=== PATIENT | male | born 1955 | race Caucasian/White ===

== ENCOUNTER 2022-07-23 09:33 | Inpatient (IN) ==
[2022-07-23] MEDS ORDERED: fentaNYL citrate 100 MCG/2 ML VIAL IV STA (10:07)
[2022-07-23] MEDS ORDERED: ONDANSETRON INJ 2 MG/ML 2 ML VIAL IV STA (10:07)
--- NOTE | 2022-07-23 10:12 | Emergency Department Note ---
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 Pain improved with nitro but developed lightheadedness and headache given some IV narcotics here with improvement in pain. Initial labs and chest x-ray unrema rkable though he does have an elevated D-dimer. His initial EKG is without ischemia. A CTA of the chest was obtained which reveals no acute findings. Further discussion with the patient he does admit he may have had a stent versus angioplasty of his coronaries several years ago. He does have multiple family members with cardiac disease. I suspect he does have some underlying other health problems though only takes an aspirin 81 mg daily sometimes to the fact that his felt he might be needing to take it. With this uncertain history, no follow-up ability and findings I feel cardiac rule out would be indicated. He is comfortable with this plan. Stable throughout. Patient received aspirin 324 mg p.o. via EMS Triage/Nursing Notes reviewed by Me Additional history obtained from EMS Differentials:Cardiac ischemia, aortic dissection, pulmonary embolism, pneumothorax, pneumonia, pericarditis, myocarditis, esophageal rupture, GERD, cholecystitis, pancreatitis, musculoskeletal, as well as other pathologies. Vital Signs: reviewed and remarkable for no significant abnormalities Interventions: Dilaudid IV, fentanyl IV, Zofran IV Labs:Reviewed and remarkable for no significant abnormalities Imaging:Chest x-ray no acute findings as per radiology. CTA of the chest as per radiology no acute findings EKG:As per my interpretation. Indication chest pain. Normal sinus rhythm at 62 bpm with a QTC of 381. There is no ectopy nor ischemia. There is poor baseline in leads II and III. No previous EKG for comparison Consults: Irvin Wisdomist Plan: Disposition:Hospitalization. Condition: Good History of Present Illness:66-year-old gentleman arrives for evaluation of chest pain. Patient notes that he history of previous small blockage around his heart that need to be cleaned out but he does not know if he has a stent. He also has a device in his left under chest but he does not know what that is either. He states he was admitted to the hospital 2 years ago for COVID for about 2 months. He denies any history of hypertension, dyslipidemia, smoking, diabetes. He does have a familial history of cardiac disease with both parents dying of MIs. Patient takes aspirin 81 mg daily. 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 Radiation to the left arm. Is nauseous as well as having some heart palpitations lightheadedness and diaphoresis. EMS arrived and gave him several rounds of nitro with improvement in pain. He does note that the pain is still there and he has some continued nausea though. Exertion made worse and he is not sure he might have even passed out. Sitting down and lying down makes his symptoms better. Denies any falls, trauma, injuries. Denies any drug or alcohol use. Patient is a transport truck driver though denies any calf pain or history of DVT/PE. ROS: See above HPI for pertinent positives & negatives. A total of 10 systems reviewed and were otherwise negative. Past Medical History:CAD Past Surgical History:Cardiac stenting first ballooning unclear Family History:Parents of MIs Social History:van driver helper, does not smoke, , Home Medications:ASA 81 mg daily Allergies:No known drug allergies Vitals:Blood Pressure: 113/61, Pulse 61, RR 15, T 36.5C, O2 95% on RA Physical Exam: GENERAL: Patient is unkempt appearing and in moderate distress/anxious. EYES: No scleral icterus, unremarkable pupils. ENT: Mucous membranes moist, no nasal congestion. NECK: No masses appreciated, nomeningismus, trachea is midline. RESPIRATORY: No dyspnea. Clear to auscultation and equal bilaterally. No wheeze, no rhonchi. CARDIOVASCULAR: Regular rate and rhythm.No murmurs, rubs, gallops appreciated. GASTROINTESTINAL: Abdomen soft, non-tender, no peritonitis.Bowel sounds positive.No masses appreciated. BACK: No midline tenderness, no CVA tenderness EXTREMITIES: Normal motion all extremities, no cyanosis, no edema. NEUROLOGIC: Alert and oriented, no acute motor or sensory deficits, no focal weakness, cranial nerves grossly intact. SKIN: No rash, no jaundice, no diaphoresis. PSYCH: Appropriate GCS: 15 ED Course: Times/Reassessments: Improvement in pain gradually feeling better. Says he just does not feel his normal self today. Hospitalist consulted for further toribio cornejo. Rafiq Campbell MD Past Med/Surg History Medical History (Updated 07/23/22 @ 22:11 by Rafiq Campbell MD) Altered mental status Chest pain Chest pain due to CAD Diabetes Diabetes type 2, uncontrolled Left-sided weakness Surgical History (Updated 07/23/22 @ 18:55 by LAKEISHA Mckeon) No pertinent past surgical history Family History (Updated 07/23/22 @ 18:54 by LAKEISHA Mckeon) Father Heart disease Mother Heart disease Kidney disease Sister Stroke Cancer Other Hypertension Social History (Updated 07/23/22 @ 18:54 by LAKEISHA Mckeon) Smoking Status: Never smoker Tobacco Type: Smokeless Tobacco (Dip or Chew) Do You Dip or Chew Tobacco: Yes; Hx Alcohol Use: No Hx Substance Use: No Preferred Language: Croatian Communication Ability: Effective Surgeon Assistant Required: No Beliefs That Will Affect Care: None Current Living Situation: Spouse Feels Safe at Home: Yes Assistive Devices: Cane Allergies Allergies Allergy/AdvReac Type Severity Reaction Status Date / Time Penicillins Allergy annaphyaxis, Verified 07/23/22 14:23 hives Home Meds Home Medications Medication Instructions Recorded Confirmed aspirin 81 mg tablet,delayed 81 mg PO DAILY 07/23/22 07/23/22 release Results & Data (ED) Vital Signs Vital Signs - 24 hr 07/23/22 09:46 07/23/22 09:46 07/23/22 10:19 Temperature 36.5 C Temperature Source Oral Pulse Rate 61 Pulse Rate [Apical] 61 Respiratory Rate 15 16 Respiratory Effort / Characteristics Non-Labored Respiratory Depth Normal Blood Pressure 113/61 Blood Pressure [Left Arm] 110/70 Blood Pressure Mean 78 Blood Pressure Mean [Left Arm] 83 Pulse Oximetry 95 97 Oxygen Delivery Method Room Air Room Air Room Air Sepsis Recent Fever Within 48 Hours No Sepsis New/Unexplained Change in Mental Status No Sepsis Action Taken by Nursing No Action Required 07/23/22 12:00 Temperature Temperature Source Pulse Rate Pulse Rate [Apical] 59 L Respiratory Rate 20 Respiratory Effort / Characteristics Respiratory Depth Blood Pressure Blood Pressure [Left Arm] 122/71 Blood Pressure Mean Blood Pressure Mean [Left Arm] 88 Pulse Oximetry 97 Oxygen Delivery Method Room Air Sepsis Recent Fever Within 48 Hours Sepsis New/Unexplained Change in Mental Status Sepsis Action Taken by Nursing Laboratory Data Result diagrams: 07/23/22 09:55 07/23/22 09:55 Lab Results 07/23/22 07/23/22 07/23/22 Range/Units 09:55 09:55 09:55 WBC 9.25 (4.8-10.8) K/ul RBC 4.56 L (4.63-6.08) M/uL Hgb 13.9 L (14.0-18.0) g/dl Hct 41.3 (40.1-51.0) % MCV 90.6 (80.0-100.0) fL MCH 30.5 (25.0-34.0) pg MCHC 33.7 (32.0-36.0) g/dL RDW Std Deviation 39.6 (36.4-46.3) fL RDW Coeff of Diamond 12.1 (11.5-14.5) % Plt Count 203 (130-400) K/uL MPV 10.9 (9.4-12.4) fL Immature Gran % (Auto) 0.6 % Neut % (Auto) 62.6 % Lymph % (Auto) 27.6 % Hartley % (Auto) 6.8 % Eos % (Auto) 1.9 % Baso % (Auto) 0.5 % Neut # (Auto) 5.78 (1.4-6.5) K/uL Lymph # (Auto) 2.55 (1.2-3.4) K/uL Hartley # (Auto) 0.63 (0.24-0.82) K/uL Eos # (Auto) 0.18 (0-0.50) K/uL Baso # (Auto) 0.05 (0-0.2) K/uL Immature Gran # (Auto) 0.06 H (0.00-0.02) K/uL D-Dimer 530 H* (0-500) ug/L FEU Sodium 134 L (136-145) mmol/L Potassium 4.2 (3.5-5.1) mmol/L Chloride 101 (98-107) mmol/L Carbon Dioxide 28 (21-32) mmol/L Anion Gap 5 (3-11) BUN 8 (6-23) mg/dl Creatinine 0.80 (0.6-1.4) mg/dl Est Cr Clr Drug Dosing 138.5 ml/min Est GFR ( Amer) 109.4 ml/min Est GFR (Non-Af Amer) 94.4 ml/min BUN/Creatinine Ratio 10.0 (10-20) Glucose 288 H (70-99(Fasting)) mg/dl Calcium 9.7 (8.5-10.1) mg/dl Magnesium 1.8 (1.7-2.4) mg/dl Total Bilirubin 0.3 (0.2-1.0) mg/dl Direct Bilirubin 0.1 (0-0.2) mg/dl AST 33 (13-39) U/L ALT 48 (7-52) U/L Alkaline Phosphatase 75 (34-104) U/L Troponin I High Sens 5.0 (0-20) pg/ml Total Protein 7.1 (6.0-8.3) gm/dl Albumin 3.5 (3.4-5.0) gm/dl Lipase 64 (11-82) U/L SARS-CoV-2, RNA, NAAT (NEGATIVE) 07/23/22 Range/Units 10:30 WBC (4.8-10.8) K/ul RBC (4.63-6.08) M/uL Hgb (14.0-18.0) g/dl Hct (40.1-51.0) % MCV (80.0-100.0) fL MCH (25.0-34.0) pg MCHC (32.0-36.0) g/dL RDW Std Deviation (36.4-46.3) fL RDW Coeff of Diamond (11.5-14.5) % Plt Count (130-400) K/uL MPV (9.4-12.4) fL Immature Gran % (Auto) % Neut % (Auto) % Lymph % (Auto) % Hartley % (Auto) % Eos % (Auto) % Baso % (Auto) % Neut # (Auto) (1.4-6.5) K/uL Lymph # (Auto) (1.2-3.4) K/uL Hartley # (Auto) (0.24-0.82) K/uL Eos # (Auto) (0-0.50) K/uL Baso # (Auto) (0-0.2) K/uL Immature Gran # (Auto) (0.00-0.02) K/uL D-Dimer (0-500) ug/L FEU Sodium (136-145) mmol/L Potassium (3.5-5.1) mmol/L Chloride (98-107) mmol/L Carbon Dioxide (21-32) mmol/L Anion Gap (3-11) BUN (6-23) mg/dl Creatinine (0.6-1.4) mg/dl Est Cr Clr Drug Dosing ml/min Est GFR ( Amer) ml/min Est GFR (Non-Af Amer) ml/min BUN/Creatinine Ratio (10-20) Glucose (70-99(Fasting)) mg/dl Calcium (8.5-10.1) mg/dl Magnesium (1.7-2.4) mg/dl Total Bilirubin (0.2-1.0) mg/dl Direct Bilirubin (0-0.2) mg/dl AST (13-39) U/L ALT (7-52) U/L Alkaline Phosphatase (34-104) U/L Troponin I High Sens (0-20) pg/ml Total Protein (6.0-8.3) gm/dl Albumin (3.4-5.0) gm/dl Lipase (11-82) U/L SARS-CoV-2, RNA, NAAT NEGATIVE (NEGATIVE) Administered Medications Insulin Aspart (Insulin Aspart Per Unit) 0 units SC ACHS SALO Stop: 08/22/22 20:59 Last Admin: 07/23/22 21:08 Dose: 3 units Documented By: BS Co-signed By: MPC Discontinued Medications Atorvastatin Calcium (Atorvastatin 40 Mg Tab) 40 mg PO NOW STA Stop: 07/23/22 17:05 Last Admin: 07/23/22 19:30 Dose: 40 mg Documented By: DIANA Fentanyl Citrate (Fentanyl Citrate 100 Mcg/2 Ml Vial) 100 mcg IV NOW STA Stop: 07/23/22 10:08 Last Admin: 07/23/22 10: Dose: 100 mcg Documented By: RC Hydromorphone HCl (Hydromorphone Inj 1 Mg/Ml Syringe) 1 mg IV NOW STA Stop: 07/23/22 11:55 Last Admin: 11/10/22 12:21 Dose: 1 mg Documented By: QGV Insulin Aspart (Insulin Aspart Per Unit) 0 units SC NOW STA Stop: 07/23/22 19:16 Last Admin: 07/23/22 19:27 Dose: 7 units Documented By: MAXIME Co-signed By: DIANA Insulin Glargine (Lantus Per Unit Charge) 25 units SQ ONE ONE Stop: 07/23/22 21:31 Last Admin: 07/23/22 21:08 Dose: 25 units Documented By: MAXIME Co-signed By: CHUYITA Ioversol (Optiray 320 500ml) 120 ml IV ONCE ONE Stop: 07/23/22 12:46 Last Admin: 07/23/22 12:46 Dose: 120 ml Documented By: EDDIE Ioversol (Optiray 320 500ml) 120 ml IV ONCE ONE Stop: 07/23/22 17:42 Last Admin: 07/23/22 17:42 Dose: 120 ml Documented By: JP Ondansetron HCl (Ondansetron Inj 2 Mg/Ml 2 Ml Vial) 4 mg IV NOW STA Stop: 07/23/22 10:08 Last Admin: 07/23/22 10:23 Dose: 4 mg Documented By: KATHY Imaging Data Radiologist's Impression: Chest X-Ray 07/23/22 10:07 SINGLE VIEW CHEST CLINICAL HISTORY: Atypical chest pain FINDINGS: 2 AP, portable, upright chest radiographs are obtained. No prior s tudies are available for comparison at the time of dictation. An electronic device projects over the left chest. The heart is mildly enlarged noting atherosclerotic calcification of the thoracic aorta. The pulmonary vasculature is noncongested. There is mild bibasilar atelectasis. The lungs and pleural spaces are otherwise clear. No pneumothorax is seen. The bony thorax is grossly intact. IMPRESSION: Cardiomegaly with no acute cardiopulmonary abnormality. ACT 112: Negative or not required by law. Electronically signed by: Jordon Tao M.D. 07/23/2022 10:42 AM Chest CTA 07/23/22 11:31 CT angio chest PE protocol CLINICAL HISTORY: Chest pain, elevated dimer TECHNIQUE: Multidetector row helical CT of the chest was performed with angiographic protocol. Coronal and sagittal reformations were obtained. Coronal and sagittal MIPS were obtained from the axial data set and were submitted for review. Automated dose lowering techniques and/or adjustment according to patient size were utilized for this exam. CT DOSE: 576.96 mGycm Comparison: Comparison is made to chest radiograph 07/23/2022 FINDINGS: Lungs and pleura: Mild dependent atelectasis is seen. Heart and pericardium: Heart size is normal. No pericardial effusion. Vessels: No evidence of pulmonary embolism. Mediastinum and gladys: Unremarkable. Chest wall and lower neck: Subcentimeter thyroid nodules are noted which do not require follow-up by ACR criteria. Abdomen: A hiatal hernia is seen. Bones: Degenerative changes in the thoracic spine. IMPRESSION: No evidence of pulmonary embolism. ACT 112: Negative or not required by law. Electronically signed by: Kolby Sparks M.D. 07/23/2022 1:39 PM Discharge Plan Visit Data Chief Complaint: Chest Pain Stated Complaint: chest pain ED Provider: Rafiq Campbell Discharge Problem: Chest pain, Elevated d-dimer Patient Disposition: Admitted As Inpatient Discharge Instructions Interventions: ED Discharge Assessment Last Done: 07/23/22 17:51
[2022-07-23 10:37] LABS: Basophils # (auto) 0.05 K/uL (0-0.2); Basophils % (auto) 0.5 %; Eosinophils # (auto) 0.18 K/uL (0-0.50); Eosinophils % (auto) 1.9 %; Hematocrit (blood only) 41.3 % (40.1-51.0); Hemoglobin 13.9 g/dl (14.0-18.0); Immature Granulocytes # (auto) 0.06 K/uL (0.00-0.02); Immature Granulocytes % (auto) 0.6 %; Lymphocytes # (auto) 2.55 K/uL (1.2-3.4); Lymphocytes % (auto) 27.6 %; Mean Corpuscular Hemoglobin 30.5 pg (25.0-34.0); Mean Corpuscular Hgb Conc 33.7 g/dL (32.0-36.0); Mean Corpuscular Volume 90.6 fL (80.0-100.0); Mean Platelet Volume 10.9 fL (9.4-12.4); Monocytes # (auto) 0.63 K/uL (0.24-0.82); Monocytes % (auto) 6.8 %; Neutrophils # (auto) 5.78 K/uL (1.4-6.5); Neutrophils % (auto) 62.6 %; Platelet Count 203 K/uL (130-400); RDW Coefficient of Variation 12.1 % (11.5-14.5); RDW Standard Deviation 39.6 fL (36.4-46.3); Red Blood Count 4.56 M/uL (4.63-6.08); White Blood Count 9.25 K/ul (4.8-10.8)
--- NOTE | 2022-07-23 10:43 | XRay Report ---
SINGLE VIEW CHEST CLINICAL HISTORY: Atypical chest pain FINDINGS: 2 AP, portable, upright chest radiographs are obtained. No prior studies are available for comparison at the time of dictation. An electronic device projects over the left chest. The heart is mildly enlarged noting atherosclerotic calcification of the thoracic aorta. The pulmonary vasculature is noncongested. There is mild bibasilar atelectasis. The lungs and pleural spaces are otherwise edilia ar. No pneumothorax is seen. The bony thorax is grossly intact. IMPRESSION: Cardiomegaly with no acute cardiopulmonary abnormality. ACT 112: Negative or not required by law. Electronically signed by: Jordon Tao M.D. 07/23/2022 10:42 AM
[2022-07-23 10:53] LABS: D Dimer 530 ug/L FEU (0-500)
[2022-07-23 11:11] LABS: Albumin Level 3.5 gm/dl (3.4-5.0); Bilirubin Direct 0.1 mg/dl (0-0.2); Bilirubin,Total 0.3 mg/dl (0.2-1.0); Calcium 9.7 mg/dl (8.5-10.1); Creatinine Clr Calc Pharmacy 138.5 ml/min; Est GFR (African American) 109.4 ml/min; Est GFR (Non-African American) 94.4 ml/min; Magnesium 1.8 mg/dl (1.7-2.4); Potassium 4.2 mmol/L (3.5-5.1); Total Protein 7.1 gm/dl (6.0-8.3)
[2022-07-23] MEDS ORDERED: HYDROmorphone INJ 1 MG/ML SYRINGE IV STA (11:54)
[2022-07-23] MEDS ORDERED: OPTIRAY 320 500ml IV ONE ×2 (12:45→17:41)
--- NOTE | 2022-07-23 13:40 | CT Scan Report ---
CT angio chest PE protocol CLINICAL HISTORY: Chest pain, elevated dimer TECHNIQUE: Multidetector row helical CT of the chest was performed with angiographic protocol. Branch l and sagittal reformations were obtained. Coronal and sagittal MIPS were obtained from the axial gene a set and were submitted for review. Automated dose lowering techniques and/or adjustment according to patient size were utilized for this exam. CT DOSE: 576.96 mGycm Comparison: Comparison is made to chest radiograph 07/23/2022 FINDINGS: Lungs and pleura: Mild dependent atelectasis is seen. Heart and pericardium: Heart size is normal. No pericardial effusion. Vessels: No evidence of pulmonary embolism. Mediastinum and gladys: Unremarkable. Chest wall and lower neck: Subcentimeter thyroid nodules are noted which do not require follow-up by ACR criteria. Abdomen: A hiatal hernia is seen. Bones: Degenerative changes in the thoracic spine. IMPRESSION: No evidence of pulmonary embolism. ACT 112: Negative or not required by law. Electronically signed by: Kolby Sparks M.D. 07/23/2022 1:39 PM
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
--- NOTE | 2022-07-23 16:15 | CT Scan Report ---
HEAD CT NONCONTRAST CT DOSE: 821.00 mGycm HISTORY: Fall. Loss of consciousness. TECHNIQUE: Multiaxial CT images of the head were performed without the use of intravenous contrast. A utomated exposure control was utilized for this study. A dose lowering technique was utilized adheri ng to the principles of ALARA. Comparison: None. Findings: The paranasal sinuses and mastoid air cells are clear. The calvarium and skull base are int act. The ventricles and sulci are within normal limits. There is no mass, hematoma, midline shift, or acute infarct. There is residual contrast within the brain from the recent chest CTA. This could res ult in suboptimal evaluation for intracranial hemorrhage. Impression: No definite acute intracranial abnormality. ACT 112: Negative or not required by law. Electronically signed by: Jem Ochoa M.D. 07/23/2022 4:14 PM
[2022-07-23] MEDS ORDERED: PHARMACIST DISCHARGE MED REC CONSULT PRN (16:48)
[2022-07-23 16:50] LABS: Appearance Urine Clear (Clear); Bilirubin Urine Negative (Negative); Blood Urine Negative (Negative); Color Urine Yellow; Glucose Urine UA 2+ (Negative); Ketones Urine Negative (Negative); Leukocyte Esterase Urine Negative (Negative); Nitrite Urine Negative (Negative); Protein Urine Negative (Negative); Specific Gravity Urine > 1.045 (1.000-1.030); Urobilinogen Urine Negative (Negative)
[2022-07-23] MEDS ORDERED: ATORVASTATIN 40 MG TAB PO STA (17:04)
--- NOTE | 2022-07-23 18:00 | CT Scan Report ---
HEAD & NECK CTA HISTORY: right sided weakness TECHNIQUE: Multiaxial CT images of the head were performed following the intravenous administration o f contrast to evaluate the major cerebral vessels. Multiaxial CT images of the neck were also perform ed following the intravenous administration of contrast to evaluate the major cervical vessels. Maxim um intensity projection images were also obtained. A dose lowering technique was utilized adhering to the principles of ALARA. COMPARISON: Head CT 07/23/2022. FINDINGS: There is no mass, hematoma, midline shift, or acute infarct. Visualized intracranial internal carotid arteries, distal vertebral arteries, and basilar artery are widely patent. There is no significant s tenosis, occlusion, or aneurysm seen within the bilateral ACAs, MCAs, or personal banking officer. There is a retention c yst within the left maxillary sinus. The major dural venous sinuses are patent. There is a single A2 segment which is considered to be a normal variant. The aortic arch and proximal great vessels are widely patent. There is no significant stenosis, occ lusion, or dissection identified within the bilateral common carotid, internal carotid, or vertebral arteries. Diffusely enlarged thyroid gland consistent with a goiter. This appears to contain a few zapata bcentimeter thyroid nodules which do not meet CT criteria for follow-up. Mild atherosclerotic plaque within the proximal left internal carotid artery without high-grade stenosis. IMPRESSION: 1. No significant stenosis, occlusion, or aneurysm within the [place]. 2. No significant stenosis, occlusion, or dissection identified within the carotid or vertebral arter ies. ACT 112: Negative or not required by law. Electronically signed by: Jem Ochoa M.D. 07/23/2022 5:57 PM
--- NOTE | 2022-07-23 18:00 | CT Scan Report ---
HEAD & NECK CTA HISTORY: right sided weakness TECHNIQUE: Multiaxial CT images of the head were performed following the intravenous administration o f contrast to evaluate the major cerebral vessels. Multiaxial CT images of the neck were also perform ed following the intravenous administration of contrast to evaluate the major cervical vessels. Maxim um intensity projection images were also obtained. A dose lowering technique was utilized adhering to the principles of ALARA. COMPARISON: Head CT 07/23/2022. FINDINGS: There is no mass, hematoma, midline shift, or acute infarct. Visualized intracranial internal carotid arteries, distal vertebral arteries, and basilar artery are widely patent. There is no significant s tenosis, occlusion, or aneurysm seen within the bilateral ACAs, MCAs, or volunteer services coordinator. There is a retention c yst within the left maxillary sinus. The major dural venous sinuses are patent. There is a single A2 segment which is considered to be a normal variant. The aortic arch and proximal great vessels are widely patent. There is no significant stenosis, occ lusion, or dissection identified within the bilateral common carotid, internal carotid, or vertebral arteries. Diffusely enlarged thyroid gland consistent with a goiter. This appears to contain a few zapata bcentimeter thyroid nodules which do not meet CT criteria for follow-up. Mild atherosclerotic plaque within the proximal left internal carotid artery without high-grade stenosis. IMPRESSION: 1. No significant stenosis, occlusion, or aneurysm within the [place]. 2. No significant stenosis, occlusion, or dissection identified within the carotid or vertebral arter ies. ACT 112: Negative or not required by law. Electronically signed by: Jem Ochoa M.D. 07/23/2022 5:57 PM
[2022-07-23 18:26] LABS: Estimated Average Glucose 235 mg/dl; Hemoglobin A1C 9.8 % (4.5-5.6)
--- NOTE | 2022-07-23 18:26 | Magnetic Resonance Report ---
Brain MRI WITHOUT CONTRAST HISTORY: Left-sided numbness and weakness. TECHNIQUE: Multiplanar multisequence MRI of the brain was performed without the use of contrast. COMPARISON STUDY: Head CT 07/23/2022. FINDINGS: There are no areas of restricted diffusion to suggest acute infarction. The midline structu res are intact. A left maxillary sinus retention cyst is again noted. The mastoid air cells are clear . The ventricles and sulci are within normal limits for age. There is no mass, hematoma, midline shif t. The major vascular flow-voids at the skull base are well maintained. IMPRESSION: No acute intracranial abnormality. ACT 112: Negative or not required by law. Electronically signed by: Jem Ochoa M.D. 07/23/2022 6:24 PM
[2022-07-23] MEDS ORDERED: MAGNESIUM HYDROXIDE SUSP 30 ML UDC PO PRN (18:47)
[2022-07-23] MEDS ORDERED: ONDANSETRON INJ 2 MG/ML 2 ML VIAL IV PRN (18:47)
[2022-07-23] MEDS ORDERED: ALUMINUM/MAGNESIUM SUSP 30 ML UDC PO PRN (18:47)
[2022-07-23] MEDS ORDERED: POLYETHYLENE (MIRALAX) 17 GM PACK PO PRN (18:47)
[2022-07-23] MEDS ORDERED: ACETAMINOPHEN 325 MG TAB PO PRN (18:47)
[2022-07-23 18:54] LABS: Amphetamines+Metham, Urine Neg (Neg); Barbiturates, Urine Neg (Neg); Benzodiazepine, Urine Neg (Neg); Cocaine, Urine Neg (Neg); MDMA (Ecstacy), Urine Neg (Neg); Methadone, Urine Neg (Neg); Opiate, Urine Pos (Neg); Phencyclidine, Urine Neg (Neg)
[2022-07-23] MEDS ORDERED: DEXTROSE 50% 50 ML SYRINGE IV PRN (19:01)
[2022-07-23] MEDS ORDERED: PHARMACY GLYCEMIC MGMT CONSULT PRN (19:01)
[2022-07-23] MEDS ORDERED: GLUCOSE 40% GEL 15 GM TUBE PO PRN (19:01)
[2022-07-23] MEDS ORDERED: GLUCOSE 10 TAB/TUBE PO PRN (19:01)
[2022-07-23] MEDS ORDERED: CARBOHYDRATES FOR HYPOGLYCEMIA PO PRN (19:01)
[2022-07-23] MEDS ORDERED: GLUCAGON FOR INJ 1 MG VIAL SQ PRN (19:01)
[2022-07-23] MEDS ORDERED: INSULIN ASPART PER UNIT SC STA (19:15)
--- NOTE | 2022-07-23 20:34 | Pharmacy Report ---
Pharmacy Glycemic Short Note 2 - Date of Service July 23, 2022 - Glycemic Short BSG Results (Last 24 hours): 07/23/22 07/23/22 09:55 19:20 Glucose 288 H POC Glucose 239 H OUTPATIENT ANTIDIABETIC REGIMEN: * N/A, previously on metformin, but hasn't taken in years per H&P HbA1c: 9.8% (07/23/22) ASSESSMENT: * HC is a 66 year old male who presents with chest pain and fall with loss of consciousness * BSG in ED of 288 mg/dL, 239 mg/dL upon admission to floor * Patient has T2DM, but does not take any medications as an outpatient (previously on metformin) * Will start with weight-based stress of 2 Novolog and ~0.2 unit/kg basal PLAN FOR INPATIENT GLYCEMIC CONTROL: * Basal insulin * Lantus 25 units SC x 1 (~0.2 unit/kg) * Reassess in AM * Bolus insulin * NovoLog per scale ACHS or Q6hrs while NPO * Goal Range: Low 110 mg/dL - High 140 mg/dL * Correction Factor: 15 mg/dL/unit * Nutritional / Prandial insulin per carb ratio of 1 unit per 6 grams CHO consumed
[2022-07-23] MEDS: INSULIN ASPART PER UNIT SC SCH (21:08)
[2022-07-23] MEDS ORDERED: LANTUS PER UNIT CHARGE SQ ONE (21:30)
[2022-07-23 21:49] LABS: Appearance Urine Clear (Clear); Bilirubin Urine Negative (Negative); Blood Urine Negative (Negative); Color Urine Yellow; Glucose Urine UA 2+ (Negative); Ketones Urine Negative (Negative); Leukocyte Esterase Urine Negative (Negative); Nitrite Urine Negative (Negative); Protein Urine Negative (Negative); Specific Gravity Urine > 1.045 (1.000-1.030); Urobilinogen Urine Negative (Negative); pH Urine 5.5 (4.5-7.5)
--- NOTE | 2022-07-24 04:53 | Electrocardiogram Report ---
Test Reason : Blood Pressure : / mmHG Vent. Rate : 062 BPM Atrial Rate : 062 BPM P-R Int : 168 ms QRS Dur : 090 ms QT Int : 376 ms P-R-T Axes : 016 010 041 degrees QTc Int : 381 ms Normal sinus rhythm No previous ECGs available Confirmed by Jose Trejo ([id number]) on 07/24/2022 4:53:00 AM Referred By: REFERRED SELF Confirmed By:Jose Trejo
--- NOTE | 2022-07-24 05:04 | Electrocardiogram Report ---
Test Reason : Blood Pressure : / mmHG Vent. Rate : 059 BPM Atrial Rate : 059 BPM P-R Int : 196 ms QRS Dur : 082 ms QT Int : 408 ms P-R-T Axes : 027 -15 029 degrees QTc Int : 403 ms Sinus bradycardia Inferior infarct (cited on or before 23-JUL-2022) Anterior infarct , age undetermined Abnormal ECG When compared with ECG of 23-JUL-2022 09:42, No significant change was found Confirmed by Jose Trejo ([id number]) on 07/24/2022 5:04:20 AM Referred By: REFERRED SELF Confirmed By:Jose Trejo
--- NOTE | 2022-07-24 07:52 | Neurology Consultation ---
Date of Consultation July 24, 2022 Assessment & Plan (1) Left-sided weakness: (2) Numbness and tingling of left arm and leg: (3) Left facial numbness: (4) Memory deficits: Plan this patient had the acute onset of severe chest pain July 23 resulting in admission. He did not seem to have any neurologic issues immediately in the ER but as time went on he complained of left-sided weakness and numbness. Unfortunately, his neurologic examination is variable and I suspect giveaway weakness ( secondary to variable effort ). for as much of the weakness he supposedly has in his arm and leg he has no facial droop / facial weakness. In addition, his numbness pattern is in all 3 distributions of the left 5th cranial nerve which would not be a stroke. Only the cheek and jaw would be numbness stroke in the forehead would be spared. In addition, he feels "nothing" in the arm and leg with the pin compared to normal on the right. There are no other objective findings and I do not suspect he has any obvious focal neurologic findings. In addition he has memory issues but I found him reasonable to converse with. Overall, his mood is down and I suspect depression. MRI of the brain showed no stroke and little to no old small vessel ischemic disease either. His head and neck vasculature was quite normal on CT angiography. He does have some neck pain. Recommendations: 1. Awaiting echocardiogram and final cardiology opinions 2. fasting lipid profile 3. I suspect with encouragement, his weakness and numbness will slowly improve each day. 4. Consider initiating fluoxetine 20 mg daily for his mood. 5. physical, occupational, and speech therapy, increasing activity as able. 6. We could consider MRI of the cervical spine but I see no evidence of myelopathy on exam. In addition, with the facial numbness that would not be consistent with a cervical spine lesion anyway. 7. continue 81 mg aspirin daily, from a neurologic standpoint.I will follow Overall, I spent a total of 90 minutes with this case including review of records, review of MRI films, direct evaluation of the patient at bedside, and discussion of the case with the patient and RN at bedside, and Dr. Bello, including differential diagnosis and treatment options. History of Present Illness Reason for Consultation: Patient is a 66-year-old, who I was asked to see at the request of LAKEISHA Sneed, for neurologic consultation regarding possible stroke. Requesting Physician: LAKEISHA Sneed Attending Physician: Jonathan Bello MD History of Present Illness this patient has a history of cardiac issues with the procedure about 6 years ago. He also has some dyslipidemia and hypertension. He states that he did know that he has diabetes. His only medication was 81 mg aspirin tablet daily. The patient lives in [place] and he is a light truck driver. Patient left around 0330 from [place] on July 23. He felt well. Around 0545 he had the onset of some chest pain and this progressed over time of and a heavy pressure substernal E. He had some blurry vision and some lightheadedness/dizziness and perhaps some pain radiating into the left upper extremity. His posterior neck had some pain. He went to a restaurant and lay down but it did get any better. He arrived to the emergency room at 9:46 a.m. on July 23 with a temperature 36.5, pulse 61 and regular, respiratory rate 15 and comfortable, and blood pressure 113/61. O2 saturation was 95%. His exam was considered normal initially. Later on, there were concerns about word-finding issues, left arm and leg weakness, and left arm and leg numbness. He wondered if he lost consciousness and hit his head but I do not have any further details regarding this as he does not remember. D-dimer was elevated at 530 glucose was 288. The rest of the CBC and Chem prof ile was unremarkable. Chest x-ray showed cardiomegaly but no acute changes. CT scan of the head and CT angiography of the chest were unremarkable. CT angiography of the head neck were unremarkable with no significant vascular anomalies or stenosis. MRI of the brain showed no acute stroke and actually little to no small vessel ischemic disease or other abnormalities. I reviewed these films. Nursing reports no issues overnight. He is in normal sinus rhythm with PACs in the 60s but he recently had a run of PA T. This morning the patient seems "down". He is concerned about ongoing symptoms and believes that he has weakness and numbness of his left arm and leg which is new, when he sits up, he gets blurry vision and a woozy feeling, and when he walks he is short of breath. All of this is new he feels. In addition, he feels like ever since this happened his memory is poor and he can't think right. Hemoglobin A1c was 9.8 Allergies Allergy/AdvReac Type Severity Reaction Status Date / Time Penicillins Allergy annaphyaxis, Verified 07/23/22 14:23 hives Home Medications Medication Instructions Recorded Confirmed Type aspirin 81 mg tablet,delayed 81 mg PO DAILY 07/23/22 07/23/22 History release Patient History Medical History Altered mental status Chest pain Chest pain due to CAD Diabetes Diabetes type 2, uncontrolled Left-sided weakness Surgical History No pertinent past surgical history S/P tonsillectomy Status post total bilateral knee replacement Family History Father , age 72 of colon cancer Heart disease Cancer Mother , age 89 of heart issues Heart disease Kidney disease Sister Stroke Cancer Other Hypertension Social History (Updated 07/24/22 @ 07:36 by Dale Shore MD) Smoking Status: Never smoker Tobacco Type: Smokeless Tobacco (Dip or Chew) Do You Dip or Chew Tobacco: Yes; Hx Alcohol Use: No Hx Substance Use: No Preferred Language: Yakut Communication Ability: Effective Registration Specialist Required: No Beliefs That Will Affect Care: None Current Living Situation: Spouse current occupational status: employed current occupation: light truck driver Feels Safe at Home: Yes Assistive Devices: Cane Review of Systems Constitutional: + fatigue; no fever and no weakness Eyes: + worsening vision ( Occasional blurry); no diplopia and no eye pain Ear, Nose, Mouth, Throat: no ear pain, no tinnitus, no hearing loss, no dizziness, no snoring, no hoarseness and no dysphagia Respiratory: + dyspnea on exertion; no cough and no dyspnea Cardiovascular: + chest pain; no palpitations and no lightheadedness Gastrointestinal: no abdominal pain, no nausea and no vomiting Musculoskeletal: + neck pain; no back pain, no radicular pain, no joint pain and no myalgia Integumentary: no rash and no lesions Neurologic: + gait abnormality, + localized weakness, + numbness and + memory loss; no generalized weakness, no tingling, no tremor(s), no abnormal movements, no headache(s), no abnormal speech and no confusion Psychiatric: + depression; no irritability, no anxiety, no difficulty concentrating, no confusion and no hallucinations Endocrine: no fatigue and no flushing Hematologic / Lymphatic: no easy bleeding and no easy bruising Allergy / Immunological: no urticaria and no problem reported Exam (Neuro) Physical Exam: The patient is right-handed. The patient is awake, alert, and attentive. Speech is normal without any aphasia or dysarthria. The patient can name objects, repeat phrases, and has normal spontaneous speech. Mentation and thought processes are intact, with orientation to person, place and time, and normal fund of knowledge. Attention and concentration are normal. Mood is down but affect is appropriate. General appearance and grooming are normal. Short and long-term memory Seem intact to conversation Pupils are 3 mm bilaterally and reactive to light. Extraocular eye muscles are intact without nystagmus. Visual acuity and visual fernandez seem normal grossly to confrontation. patient believes he does not feel pin in the forehead cheek and jaw line on the left compared to the right which is normal. Corneal reflexes are positive bilaterally. Facial strength and symmetry was normal bilaterally. Hearing seems normal bilaterally. Palate moves well without asymmetry. There is normal sternocleidomastoid and trapezius (shoulder shrug) strength bilaterally. Tongue is midline with good strength bilaterally. Neck has a full range of motion without discomfort. There are no cervical bruits bilaterally. Heart is without murmur. There is a regular rhythm and rate. Cervical, thoracic, and lumbar spine are nontender to palpation. Gait Was not tested but stance sitting up is reasonable. With outstretched arms there is no drift. There are no resting, postural, or action tremors. There is no ataxia with finger to nose testing , however, he has changes in his ability to do [id number] testing on the left hitting different parts of his face each time he comes ( and hits my finger every time). There is good facility in the hands, however, he has variability in the left. No other abnormal involuntary movements are noted. Motor strength examination is somewhat difficult in that he has giveaway weakness in the left arm and leg compared to the right. At times I can get him to full strength in then he will give away as it to show me that he is weak on that side. The right arm and leg both proximally distally are 5/5. The limbs have good tone without rigidity or spasticity. There is no atrophy noted in the muscles. Muscle bulk is normal, there is no tenderness to palpation, no myotonia to percussion, and no fasciculations seen. Sensory examination Reveals a fairly dense decreased sensation to pin diffusely in the left arm and left leg proximally and distally compared to the right which is totally normal. Reflexes are 1/4 in the biceps, triceps, and brachioradialis tendons bilaterally. The quadriceps and Achilles tendon reflexes were absent bilaterally. There is no clonus bilaterally. Toes are downgoing with plantar stimulation bilaterally. Peripheral pulses are present and of normal quality distally in all 4 limbs. There is no peripheral edema noted in the limbs. Results & Data ([facility]) Vital Signs (Past 12 Hours) Vital Signs Temp Pulse Pulse Resp BP Pulse Ox O2 Del Method 07/24/22 04:00 36.7 C 84 18 124/76 98 Room Air 07/24/22 00:15 36.8 C 63 20 115/72 94 Room Air 07/23/22 22:12 65 07/23/22 19:32 Room Air 07/23/22 19:32 36.5 C 70 18 121/74 96 Room Air PG Care Time/CCT Total # of Minutes Spent Total Time Spent with Patient: Total time spent is greater than 50% in coordination of care (as documented) at patient's floor/unit and/or counseling patient: Coding Level of Care Code 13382 Office/OBS Consult Lvl 5 Diagnoses Left-sided weakness R53.1 Numbness and tingling of left arm and leg R20.0; R20.2 Left facial numbness R20.0 Memory deficits R41.3 Time Spent (min) 90 Comment At modifiers as able
[2022-07-24 08:14] LABS: Hemoglobin 13.5 g/dl (14.0-18.0); Mean Corpuscular Hemoglobin 30.8 pg (25.0-34.0); Mean Corpuscular Hgb Conc 34.6 g/dL (32.0-36.0); Mean Corpuscular Volume 88.8 fL (80.0-100.0); Mean Platelet Volume 10.2 fL (9.4-12.4); Platelet Count 176 K/uL (130-400); RDW Coefficient of Variation 12.1 % (11.5-14.5); RDW Standard Deviation 39.7 fL (36.4-46.3); Red Blood Count 4.39 M/uL (4.63-6.08); White Blood Count 9.03 K/ul (4.8-10.8)
[2022-07-24] MEDS: LANTUS PER UNIT CHARGE SQ SCH ×2 (08:38→21:13)
[2022-07-24] MEDS: INSULIN ASPART PER UNIT SC SCH ×4 (08:38→21:13)
[2022-07-24] MEDS: ASPIRIN 81 MG ECTAB PO SCH (08:39)
[2022-07-24] MEDS ORDERED: LANTUS PER UNIT CHARGE SQ SCH (09:00)
[2022-07-24] MEDS ORDERED: ATORVASTATIN 40 MG TAB PO SCH (09:00)
[2022-07-24 09:34] LABS: BUN Creatinine Ratio 10.2 (10-20); Chol HDL Ratio 4.6 (0-5); Creatinine Clr Calc Pharmacy 111.7 ml/min; Est GFR (African American) 94.1 ml/min; Est GFR (Non-African American) 81.2 ml/min; Phosphorus 3.4 mg/dl (2.5-4.9); Potassium 4.3 mmol/L (3.5-5.1)
[2022-07-24 09:36] LABS: Troponin I High Sensitivity 6.6 pg/ml (0-20)
[2022-07-24] MEDS: NITROGLYCERIN SL 0.4 MG/TAB TAB SL PRN ×3 (11:46→13:46)
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
[2022-07-24] MEDS ORDERED: ATROPINE SULFATE 0.1 MG/ML 10ML SYR IV ONE (13:11)
[2022-07-24] MEDS ORDERED: DOBUTamine HCL 12.5 MG/ML 20 ML VIAL IV ONE (13:12)
[2022-07-24] MEDS ORDERED: METOPROLOL TARTRATE 1 MG/ML VIAL IV ONE (13:12)
--- NOTE | 2022-07-24 13:29 | Pharmacy Report ---
Pharmacy Glycemic Short Note 2 - Date of Service July 24, 2022 - Glycemic Short BSG Results (Last 24 hours): 07/23/22 07/23/22 07/24/22 19:20 20:59 07:44 Glucose POC Glucose 239 H 180 H 184 H 07/24/22 07/24/22 07:58 12:03 Glucose 190 H POC Glucose 139 H OUTPATIENT ANTIDIABETIC REGIMEN: * N/A, previously on metformin, but hasn't taken in years per H&P * HbA1c: 9.8% (07/23/22) ASSESSMENT: 07/24: * BSGs have been fairly well-controlled today. * Lantus daily dose increased slightly today for fasting BSG above goal. * Novolog parameters loosened slightly as Lantus approaches steady-state, in an attempt to avoid hypoglycemia. * Will continue to follow and adjust as indicated. 07/23 * HC is a 66 year old male who presents with chest pain and fall with loss of consciousness * BSG in ED of 288 mg/dL, 239 mg/dL upon admission to floor * Patient has T2DM, but does not take any medications as an outpatient (previously on metformin) * Will start with weight-based stress of 2 Novolog and ~0.2 unit/kg basal PLAN FOR INPATIENT GLYCEMIC CONTROL: * Basal insulin * Lantus 15 units SQ BID * Bolus insulin * NovoLog per scale ACHS or Q6hrs while NPO * Goal Range: Low 110 mg/dL - High 140 mg/dL * Correction Factor: 25 mg/dL/unit * Nutritional / Prandial insulin per carb ratio of 1 unit per 8 grams CHO consumed
--- NOTE | 2022-07-24 13:43 | Hospitalist Progress Note ---
Date of Service July 24, 2022 Assessment & Plan (1) Chest pain due to CAD: (2) Left-sided weakness: (3) Altered mental status: (4) Diabetes type 2, uncontrolled: Plan 66 y/o from [place] driving through started to have chest pain and a fall this morning with LOC. Limited and unreliable PMH. Only medication is a baby aspirin. Reports having a stent placed 5 years ago along with a loop recorder but claims not seeing any primary or specialist providers. Some left upper e xtremity weakness noted. ; D-dimer elevate CTA negative. Head CT ordered. glucose 288; place on SSI. Chest pain due to CAD Rule Out ACS: Presented with recurrent chest pain. EKG shows normal sinus rhythm with no ST or T wave changes. High sensitive troponin negative. Echo shows EF of 55 to 60% with grade 1 diastolic dysfunction. Plan: Dobutamine stress test showed inferior wall ischemia. Patient taken to [facility]; will follow-up on recommendation. On aspirin, Lipitor and losartan. Left sided weakness: Altered mental status: Stroke ruled out Difficulty with word finding and his verbiage changes when asked the same question Patient reports having a fall this morning with LOC; unsure if he hit his head Left upper extremity weaker than right upper extremity. Head CT, head/neck CTA and brain MRI negative Alcohol level negative Plan; -Continue on aspirin, Lipitor -Continue playground monitor -PT OT. Diabetes Mellitus, Type 2: Serum glucose 288; unknown baseline A1C 9.[address] on SSI Per pt was taking Metformin but hasn't in years Plan: -Started on insulin glargine and NovoLog. -We will start him on metformin as outpatient; also benefit from SGLT2 inhibitor; will ask him to follow-up with his primary care doctor to decide on long-term care. Disposition: PCP: None VTE Prophylaxis: Lovenox SQ Code Status: Full Code Point of Contact: pt , Erica Discussed with daughter at bedside. Admission and Anticipated Discharge Date Admission Date: July 24, 2022 Subjective Patient seen and examined at bedside. Patient reports intermittent chest pain. No complaint of fever, chills, shortness of breath, abdomen pain or urinary symptoms. Telemetry showed short run of atrial tachycardia. Continues to report left-sided weakness and numbness. Review of Systems Review of Systems: All systems reviewed & are unremarkable except as noted in Subjective Physical Exam Physical Exam: Constitutional: WD/WN, vitals as above, NAD, sitting up in bed, pleasant, conversing easily Respiratory: normal respiratory effort, lungs clear to auscultation, no wheeze, rales, rhonchi. Normal insp/exp effort, no accessory muscle use Cardiovascular: RRR, no murmur, no edema Vessels: no JVD or carotid bruit Chest: normal inspection of chest Abdomen: normal bowel sounds, soft, nontender, no hepatosplenomegaly Musculoskeletal: no cyanosis or clubbing, extremities motor strength 5/5 Skin: no rashes, warm and dry normal turgor Neurologic: PERRL, EOMI, accommodation nl, no face palsy. Weakness in left upper and lower EXTR- 4/5. strength intact otherwise. numbness in left upper and lower extremities. Psychiatric: A+Ox3, euthymic affect Lymphatic: no cervical or axillary lymphadenopathy : deferred Results & Data Results & Data ([facility]) Vital Signs (Past 12 Hours) Vital Signs Temp Pulse Pulse Resp BP Pulse Ox O2 Del Method 07/24/22 12:38 36.5 C 62 18 105/65 96 Room Air 07/24/22 10:13 Room Air 07/24/22 08:00 60 07/24/22 08:00 36.7 C 61 18 124/77 95 Room Air 07/24/22 04:00 36.7 C 84 18 124/76 98 Room Air Laboratory Results Laboratory Results WBC 9.03 K/ul (4.8-10.8) 07/24/22 07:59 RBC 4.39 M/uL (4.63-6.08) L 07/24/22 07:59 Hgb 13.5 g/dl (14.0-18.0) L 07/24/22 07:59 Hct 39.0 % (40.1-51.0) L 07/24/22 07:59 MCV 88.8 fL (80.0-100.0) 07/24/22 07:59 MCH 30.8 pg (25.0-34.0) 07/24/22 07:59 MCHC 34.6 g/dL (32.0-36.0) 07/24/22 07:59 RDW Std Deviation 39.7 fL (36.4-46.3) 07/24/22 07:59 RDW Coeff of Diamond 12.1 % (11.5-14.5) 07/24/22 07:59 Plt Count 176 K/uL (130-400) 07/24/22 07:59 MPV 10.2 fL (9.4-12.4) 07/24/22 07:59 Immature Gran % (Auto) 0.6 % 07/23/22 09:55 Neut % (Auto) 62.6 % 07/23/22 09:55 Lymph % (Auto) 27.6 % 07/23/22 09:55 [place] % (Auto) 6.8 % 07/23/22 09:55 Eos % (Auto) 1.9 % 07/23/22 09:55 Baso % (Auto) 0.5 % 07/23/22 09:55 Neut # (Auto) 5.78 K/uL (1.4-6.5) 07/23/22 09:55 Lymph # (Auto) 2.55 K/uL (1.2-3.4) 07/23/22 09:55 [place] # (Auto) 0.63 K/uL (0.24-0.82) 07/23/22 09:55 Eos # (Auto) 0.18 K/uL (0-0.50) 07/23/22 09:55 Baso # (Auto) 0.05 K/uL (0-0.2) 07/23/22 09:55 Immature Gran # (Auto) 0.06 K/uL (0.00-0.02) H 07/23/22 09:55 D-Dimer 530 ug/L FEU (0-500) H* 07/23/22 09:55 Sodium 135 mmol/L (136-145) L 07/24/22 07:58 Potassium 4.3 mmol/L (3.5-5.1) 07/24/22 07:58 Chloride 101 mmol/L (98-107) 07/24/22 07:58 Carbon Dioxide 31 mmol/L (21-32) 07/24/22 07:58 Anion Gap 3 (3-11) 07/24/22 07:58 BUN 10 mg/dl (6-23) 07/24/22 07:58 Creatinine 0.98 mg/dl (0.6-1.4) 07/24/22 07:58 Est Cr Clr Drug Dosing 111.7 ml/min 07/24/22 07:58 Est GFR ( Amer) 94.1 ml/min 07/24/22 07:58 Est GFR (Non-Af Amer) 81.2 ml/min 07/24/22 07:58 BUN/Creatinine Ratio 10.2 (10-20) 07/24/22 07:58 Glucose 190 mg/dl (70-99(Fasting)) H 07/24/22 07:58 POC Glucose 139 mg/dl (70-99) H 07/24/22 12:03 Estimat Average Glucose 235 mg/dl 07/23/22 16:26 Hemoglobin A1c 9.8 % (4.5-5.6) H 07/23/22 16:26 Calcium 9.0 mg/dl (8.5-10.1) 07/24/22 07:58 Phosphorus 3.4 mg/dl (2.5-4.9) 07/24/22 07:58 Magnesium 1.8 mg/dl (1.7-2.4) 07/23/22 09:55 Total Bilirubin 0.3 mg/dl (0.2-1.0) 07/23/22 09:55 Direct Bilirubin 0.1 mg/dl (0-0.2) 07/23/22 09:55 AST 33 U/L (13-39) 07/23/22 09:55 ALT 48 U/L (7-52) 07/23/22 09:55 Alkaline Phosphatase 75 U/L (34-104) 07/23/22 09:55 Troponin I High Sens 6.6 pg/ml (0-20) 07/24/22 07:58 Total Protein 7.1 gm/dl (6.0-8.3) 07/23/22 09:55 Albumin 3.5 gm/dl (3.4-5.0) 07/23/22 09:55 Triglycerides 84 mg/dl (0-150) 07/24/22 07:58 Cholesterol 125 mg/dl (0-200) 07/24/22 07:58 LDL Cholesterol, Calc 81 mg/dl 07/24/22 07:58 VLDL Cholesterol, Calc 17 mg/dl (0-30) 07/24/22 07:58 HDL Cholesterol 27 mg/dl 07/24/22 07:58 Cholesterol/HDL Ratio 4.6 (0-5) 07/24/22 07:58 Lipase 64 U/L (11-82) 07/23/22 09:55 Urine Color Yellow 07/23/22 21:20 Urine Appearance Clear (Clear) 07/23/22 21:20 Urine pH 5.5 (4.5-7.5) 07/23/22 21:20 Ur Specific [place] > 1.045 (1.000-1.030) H 07/23/22 21:20 Urine Protein Negative (Negative) 07/23/22 21:20 Urine Glucose (UA) 2+ (Negative) H 07/23/22 21:20 Urine Ketones Negative (Negative) 07/23/22 21:20 Urine Blood Negative (Negative) 07/23/22 21:20 Urine Nitrite Negative (Negative) 07/23/22 21:20 Urine Bilirubin Negative (Negative) 07/23/22 21:20 Urine Urobilinogen Negative (Negative) 07/23/22 21:20 Ur Leukocyte Esterase Negative (Negative) 07/23/22 21:20 Urine Opiates Screen Pos (Neg) H 07/23/22 16:20 Ur Methadone, Qual Neg (Neg) 07/23/22 16:20 Urine Barbiturates Neg (Neg) 07/23/22 16:20 Ur Phencyclidine (PCP) Neg (Neg) 07/23/22 16:20 U Amphetamin/Meth Scrn Neg (Neg) 07/23/22 16:20 MDMA (Ecstasy) Screen Neg (Neg) 07/23/22 16:20 U Benzodiazepines Scrn Neg (Neg) 07/23/22 16:20 Ur Cocaine Metabolite Neg (Neg) 07/23/22 16:20 U Marijuana (THC) Screen Neg (Neg) 07/23/22 16:20 Ethyl Alcohol mg/dL < 10.0 mg/dl (<10.0) 07/23/22 17:06 SARS-CoV-2, RNA, NAAT NEGATIVE (NEGATIVE) 07/23/22 10:30 Impressions Chest X-Ray 07/23/22 10:07 SINGLE VIEW CHEST CLINICAL HISTORY: Atypical chest pain FINDINGS: 2 AP, portable, upright chest radiographs are obtained. No prior studies are available for comparison at the time of dictation. An electronic device projects over the left chest. The heart is mildly enlarged noting atherosclerotic calcification of the thoracic aorta. The pulmonary vasculature is noncongested. There is mild bibasilar atelectasis. The lungs and pleural spaces are otherwise clear. No pneumothorax is seen. The bony thorax is grossly intact. IMPRESSION: Cardiomegaly with no acute cardiopulmonary abnormality. ACT 112: Negative or not required by law. Electronically signed by: Jordon Tao M.D. 07/23/2022 10:42 AM Chest CTA 07/23/22 11:31 CT angio chest PE protocol CLINICAL HISTORY: Chest pain, elevated dimer TECHNIQUE: Multidetector row helical CT of the chest was performed with angiographic protocol. Coronal and sagittal reformations were obtained. Coronal and sagittal MIPS were obtained from the axial data set and were submitted for review. Automated dose lowering techniques and/or adjustment according to patient size were utilized for this exam. CT DOSE: 576.96 mGycm Comparison: Comparison is made to chest radiograph 07/23/2022 FINDINGS: Lungs and pleura: Mild dependent atelectasis is seen. Heart and pericardium: Heart size is normal. No pericardial effusion. Vessels: No evidence of pulmonary embolism. Mediastinum and gladys: Unremarkable. Chest wall and lower neck: Subcentimeter thyroid nodules are noted which do not require follow-up by ACR criteria. Abdomen: A hiatal hernia is seen. Bones: Degenerative changes in the thoracic spine. IMPRESSION: No evidence of pulmonary embolism. ACT 112: Negative or not required by law. Electronically signed by: Kolby Sparks M.D. 07/23/2022 1:[address] 07/23/22 15:[address] DOSE: 821.00 mGycm HISTORY: Fall. Loss of consciousness. TECHNIQUE: Multiaxial CT images of the head were performed without the use of intravenous contrast. Automated exposure control was utilized for this study. A dose lowering technique was utilized adhering to the principles of ALARA. Comparison: None. Findings: The paranasal sinuses and mastoid air cells are clear. The calvarium and skull base are intact. The ventricles and sulci are within normal limits. There is no mass, hematoma, midline shift, or acute infarct. There is residual contrast within the brain from the recent chest CTA. This could result in suboptimal evaluation for intracranial hemorrhage. Impression: No definite acute intracranial abnormality. ACT 112: Negative or not required by law. Electronically signed by: Jem Ochoa M.D. 07/23/2022 4:14 PM Head CTA 07/23/22 16:48 HEAD & NECK CTA HISTORY: right sided weakness TECHNIQUE: Multiaxial CT images of the head were performed following the intravenous administration of contrast to evaluate the major cerebral vessels. Multiaxial CT images of the neck were also performed following the intravenous administration of contrast to evaluate the major cervical vessels. Maximum intensity projection images were also obtained. A dose lowering technique was utilized adhering to the principles of ALARA. COMPARISON: Head CT 07/23/2022. FINDINGS: There is no mass, hematoma, midline shift, or acute infarct. Visualized intracranial internal carotid arteries, distal vertebral arteries, and basilar artery are widely patent. There is no significant stenosis, occlusion, or aneurysm seen within the bilateral ACAs, MCAs, or lace stripper. There is a retention cyst within the left maxillary sinus. The major dural venous sinuses are patent. There is a single A2 segment which is considered to be a normal variant. The aortic arch and proximal great vessels are widely patent. There is no significant stenosis, occlusion, or dissection identified within the bilateral common carotid, internal carotid, or vertebral arteries. Diffusely enlarged thyroid gland consistent with a goiter. This appears to contain a few subcentimeter thyroid nodules which do not meet CT criteria for follow-up. Mild atherosclerotic plaque within the proximal left internal carotid artery without high-grade stenosis. IMPRESSION: 1. No significant stenosis, occlusion, or aneurysm within the [place]. 2. No significant stenosis, occlusion, or dissection identified within the carotid or vertebral arteries. ACT 112: Negative or not required by law. Electronically signed by: Jem Ochoa M.D. 07/23/2022 5:57 PM Neck CTA 07/23/22 16:52 HEAD & NECK CTA HISTORY: right sided weakness TECHNIQUE: Multiaxial CT images of the head were performed following the intravenous administration of contrast to evaluate the major cerebral vessels. Multiaxial CT images of the neck were also performed following the intravenous administration of contrast to evaluate the major cervical vessels. Maximum intensity projection images were also obtained. A dose lowering technique was utilized adhering to the principles of ALARA. COMPARISON: Head CT 07/23/2022. FINDINGS: There is no mass, hematoma, midline shift, or acute infarct. Visualized intracranial internal carotid arteries, distal vertebral arteries, and basilar artery are widely patent. There is no significant stenosis, occlusion, or aneurysm seen within the bilateral ACAs, MCAs, or lace stri[place]. There is a retention cyst within the left maxillary sinus. The major dural venous sinuses are patent. There is a single A2 segment which is considered to be a normal variant. The aortic arch and proximal great vessels are widely patent. There is no significant stenosis, occlusion, or dissection identified within the bilateral common carotid, internal carotid, or vertebral arteries. Diffusely enlarged thyroid gland consistent with a goiter. This appears to contain a few subcentimeter thyroid nodules which do not meet CT criteria for follow-up. Mild atherosclerotic plaque within the proximal left internal carotid artery without high-grade stenosis. IMPRESSION: 1. No significant stenosis, occlusion, or aneurysm within the [place]. 2. No significant stenosis, occlusion, or dissection identified within the carotid or vertebral arteries. ACT 112: Negative or not required by law. Electronically signed by: Jem Ocoha M.D. 07/23/2022 5:57 PM Brain MRI 07/23/22 16:59 Brain MRI WITHOUT CONTRAST HISTORY: Left-sided numbness and weakness. TECHNIQUE: Multiplanar multisequence MRI of the brain was performed without the use of contrast. COMPARISON STUDY: Head CT 07/23/2022. FINDINGS: There are no areas of restricted diffusion to suggest acute infarction. The midline structures are intact. A left maxillary sinus retention cyst is again noted. The mastoid air cells are clear. The ventricles and sulci are within normal limits for age. There is no mass, hematoma, midline shift. The major vascular flow-voids at the skull base are well maintained. IMPRESSION: No acute intracranial abnormality. ACT 112: Negative or not required by law. Electronically signed by: Jem Ochoa M.D. 07/23/2022 6:24 PM
[2022-07-24] MEDS ORDERED: MIDAZOLAM HCL 1 MG/ML 2ML VIAL ONE ×2 (13:52→14:10)
[2022-07-24] MEDS ORDERED: niCARdipine HCL INJ 2.5 MG/ML 10 ML AMP ONE (13:52)
[2022-07-24] MEDS ORDERED: HEPARIN (PORCINE) 1000 UNIT/ML 10 ML (CATH LAB USE ONLY) ONE (13:52)
--- NOTE | 2022-07-24 13:52 | Communication Note ---
Date of Service: July 24, 2022 PT failed stress test. Crushing substernal left-sided chest pain at 70% max target heart rate. Some relief with sublingual nitroglycerin. Imaging shows inferior wall ischemia with overall unchanged EF. Patient will be taken emergently to cardiac catheterization lab. Further recommendations to follow.
[2022-07-24] MEDS ORDERED: NITROGLYCERIN/D5W 100MCG/ML 20ML SYR ONE (13:53)
[2022-07-24] MEDS ORDERED: fentaNYL citrate 100 MCG/2 ML VIAL ONE (13:53)
[2022-07-24] MEDS ORDERED: ADENOSINE IV SOLN 3 MG/ML 20 ML VIAL IV ONE (14:52)
--- NOTE | 2022-07-24 15:13 | Post Anesthesia Assessment ---
Date of Service July 24, 2022 Post Sedation Assessment Vital Signs Temp Pulse Pulse Resp BP Pulse Ox O2 Del Method 07/24/22 12:38 97.7 F 62 18 105/65 96 Room Air 07/24/22 10:13 Room Air 07/24/22 08:00 60 07/24/22 08:00 98.1 F 61 18 124/77 95 Room Air 07/24/22 04:00 98.1 F 84 18 124/76 98 Room Air 07/24/22 00:15 98.2 F 63 20 115/72 94 Room Air 07/23/22 22:12 65 07/23/22 18:40 65 07/23/22 19:32 Room Air 07/23/22 19:32 97.7 F 70 18 121/74 96 Room Air 07/23/22 18:48 97.7 F 70 18 121/74 96 Room Air 07/23/22 17:00 62 18 122/84 96 Room Air Recovery Score Activity: Moves 4 extremities Respiration: Deep Breath/Cough Circulation: +/-20% PreAnes Value Consciousness: Fully Awake Oxygen Saturation: O2 needed for >90% Discharge Sedation Level of Care: Fast Track Phase II Post Sedation Plan On clinical assessment, the patient appears to have tolerated the sedation without complications. Patient is recovering as anticipated. Patient will continue to be monitored by nursing and may be discharged when sedation discharge criteria are met per below protocol. Upon Completions of procedure up to 15 minutes continue every 5 minute vital signs and the P.A.R. score; then discharge to a Phase I or Fast Track to Phase II per the following guidelines: * Discharge Patient to appropriate Phase II area if PAR is 8 or greater or return to pre- procedure baseline. The post - procedure orders will be as directed. * If PAR score is less than 8 or not return to pre-procedure baseline then patient will follow Phase I monitoring till PAR is reached for Phase II. The Phase I may be done in procedure room or may call to secure a Phase I area. * If naloxone or flumazenil are used for reversal, hold in Phase I for continued monitoring from when last reversal dose was given for a minimum of 60 minutes or longer pending the nurse and/or physician discretion of patient condition before discharge to Phase II. Please call the Sedation Physician to re-evaluate and complete post-note for discharge to Phase II area. Do NOT discharge from procedure sedation or Phase 1 until post- sedation evaluation note is complete by procedure /sedation MD Sedation Discharge Instructions to be given to the patient at discharge to home.
--- NOTE | 2022-07-24 15:17 | Communication Note ---
Date of Service: July 24, 2022 Cardiac catheterization without significant obstructive disease. Suspect chest discomfort caused by microvascular dysfunction. Medical management recommended with aspirin 81 mg daily, rosuvastatin 10 mg daily, metoprolol succinate 12.5 mg p.o. daily and as needed sublingual nitroglycerin. Patient will need to reestablish with his primary chief service dispatcher and follow-up as an outpatient. Per Maria LuisaOT: recommendations once patient has a syncopal episode include that are unable to drive for a minimum of 6 months or until the cause of syncope is found and corrected. I have called and updated his , she voiced her appreciation. Recommend Zio patch placement upon discharge and again follow-up with primary chief service dispatcher.
--- NOTE | 2022-07-24 15:28 | Cardiac Catheterization ---
[facility] Data: General Accountant Cardiac Status Clinical evaluation leading to the procedure CAD Presenation: Unstable angina Anginal Classification: CCS IV Diagnostic Physicians Name: Lam Stratton MD Closure Device Recommendations: Medical Therapy and/or Counseling Cardiac Cath Procedure Full Procedure Date July 24, 2022 Pre-Procedure Diagnosis Pre-Procedure Diagnosis: Positive Stress Test AUC Score AUC Score: 8 Post-Procedure Diagnosis Post-Procedure Diagnosis: Moderate CAD and Normal Intracardiac Pressures Procedure(s) Performed Procedure(s) Performed: Coronary Angiography, Left Heart Cath, IVUS and Fractional Flow [place] [employer] Assistant Lam Stratton MD Chronic Specialist(s) Hector Estimated Blood Loss Estimated Blood Loss: 10 Medication(s) Medication(s): Adenosine, Fentanyl, Heparin, Lidocaine 1%, Nicardipine, Nitroglycerin and Versed Summary of Findings Indication: Abnormal stress test, chest pain, syncope Access: 6 Fr right radial artery Catheters: [place], JL 3.5, JL 3.5 guide, pigtail Findings: LM -Short, normal caliber, 30% calcified ostial stenosis by IVUS LAD -medium caliber, 20 to 30% ostial stenosis, 30 to 40% mid segment disease after diagonal. Distal vessel small with diffuse disease and tapers to apex. Medium D2 without significant disease. Circumflex -dominant, large caliber, no significant disease. Gives off 2 medium OM's and medium PDA without significant disease RCA -small, nondominant, no significant disease LVEDP -12 IVUS/FFR of left main: -Left main cannulated with EBU 3.5 guide -BMW wire placed into distal LAD [place] IVUS catheter placed into mid LAD Pullback revealed minimal noncalcified LAD disease. Mid to distal left main without disease. Calcified nodule at left main ostium with approximately 30% stenosis IVUS catheter removed -ACIST Catheter placed across stenosis -Pd/Pa 0.94 -FFR 0.86 -Coronary angiography revealed no apparent complications post wire/catheter removal Arterial Closure: TR band Summary: 1. Moderate nonobstructive coronary artery disease -30% ostial left main 20 to 30% ostial LAD, 30 to 40% mid LAD (FFR across left main/LAD disease 0.86). 2. Normal intracardiac filling pressure Recommendations: Continued ASCVD risk factor modification per Dr. Melara Hemodynamics Rest Ao:: 83/55/73 Final Ao: 90/57/72 LV: 89/12 Recommendations Recommendations: Medical Therapy and/or Counseling Specimens Specimens: None Radiation Exposure (mGy) 2764 Contrast (mls) 100 Anesthesia moderate Procedural Complication(s) None Disposition General Accountant Holding/Recovery I attest to the content of the Intraoperative Record and any orders documented therein. Any exceptions are noted below. [facility] Card Cath Procedure Codes Cardiac Catheterization Procedure 1: Cardiovascular Cath Procedures: 77405 Coronaries and LHC (+/-LV) Procedure 2: Cardiovascular Cath Procedures: 27907 (Doppler) Pressure Wire Therapeutic Services & Ancillary Procedure 1: Cardiovascular Tx and Anc Procedures: 06795 IV Ultrasound (Coronary or Graft) Moderate Sedation Procedure 1: Sedation/Anesthesia: 96565 Mod Sedation by the same physician;Init15 Min Child Age 5 & Up Procedure 2: Sedation/Anesthesia: 15904 Mod Sedation by the same physician; Ea [id number] Minutes PG Care Time/CCT Total # of Minutes Spent Total Time Spent with Patient: Total time spent is greater than 50% in coordination of care (as documented) at patient's floor/unit and/or counseling patient:
--- NOTE | 2022-07-24 15:35 | Electrocardiogram Report ---
Test Reason : Blood Pressure : / mmHG Vent. Rate : 067 BPM Atrial Rate : 067 BPM P-R Int : 188 ms QRS Dur : 084 ms QT Int : 400 ms P-R-T Axes : 044 -09 034 degrees QTc Int : 422 ms Normal sinus rhythm with sinus arrhythmia Possible Anterior infarct (cited on or before 23-JUL-2022) Abnormal ECG When compared with ECG of 23-JUL-2022 11:51, No significant change was found Confirmed by Bong Baxter ([id number]) on 07/24/2022 3:34:23 PM Referred By: REFERRED SELF Confirmed By:Bong Baxter
[2022-07-24] MEDS: LOSARTAN POTASSIUM 25 MG TAB PO SCH (15:59)
[2022-07-24] MEDS ORDERED: SODIUM CHLORIDE 0.9% 1000ML 1,000 ML IV SCH (17:45)
[2022-07-25 04:19] LABS: Basophils # (auto) 0.05 K/uL (0-0.2); Basophils % (auto) 0.5 %; Eosinophils # (auto) 0.18 K/uL (0-0.50); Eosinophils % (auto) 1.8 %; Hematocrit (blood only) 39.2 % (40.1-51.0); Hemoglobin 13.2 g/dl (14.0-18.0); Immature Granulocytes # (auto) 0.05 K/uL (0.00-0.02); Immature Granulocytes % (auto) 0.5 %; Lymphocytes # (auto) 1.93 K/uL (1.2-3.4); Lymphocytes % (auto) 19.3 %; Mean Corpuscular Hemoglobin 30.5 pg (25.0-34.0); Mean Corpuscular Hgb Conc 33.7 g/dL (32.0-36.0); Mean Corpuscular Volume 90.5 fL (80.0-100.0); Mean Platelet Volume 10.7 fL (9.4-12.4); Monocytes # (auto) 0.69 K/uL (0.24-0.82); Monocytes % (auto) 6.9 %; Neutrophils # (auto) 7.12 K/uL (1.4-6.5); Platelet Count 162 K/uL (130-400); RDW Coefficient of Variation 12.2 % (11.5-14.5); RDW Standard Deviation 40.2 fL (36.4-46.3); Red Blood Count 4.33 M/uL (4.63-6.08); White Blood Count 10.02 K/ul (4.8-10.8)
[2022-07-25 04:39] LABS: BUN Creatinine Ratio 11.5 (10-20); Creatinine Clr Calc Pharmacy 105.2 ml/min; Est GFR (African American) 87.5 ml/min; Est GFR (Non-African American) 75.5 ml/min; Potassium 3.9 mmol/L (3.5-5.1)
[2022-07-25] MEDS: LOSARTAN POTASSIUM 25 MG TAB PO SCH (09:53)
[2022-07-25] MEDS: METOPROLOL SUCC 25MG EXT REL TAB PO SCH (09:53)
[2022-07-25] MEDS: ROSUVASTATIN CALCIUM 10 MG TAB PO SCH (09:54)
[2022-07-25] MEDS: INSULIN ASPART PER UNIT SC SCH ×4 (10:00→20:41)
[2022-07-25] MEDS: LANTUS PER UNIT CHARGE SQ SCH ×2 (10:01→20:41)
--- NOTE | 2022-07-25 10:32 | Cardiology Progress Note ---
Date of Service July 25, 2022 Assessment & Plan (1) History of CVA (cerebrovascular accident): (2) Morbid obesity: (3) Memory deficits: (4) Left facial numbness: (5) Numbness and tingling of left arm and leg: (6) Diabetes type 2, uncontrolled: (7) Chest pain: (8) CAD (coronary artery disease): Plan The patient's work-up has been negative from a cardiac standpoint. I reviewed the telemetry for the past 24 hours and he has had no significant arrhythmias. At this point I do not believe any additional inpatient cardiac testing is indicated. If the patient is to stay locally, then we would be happy to see him as an outpatient and place a monitor for 1 to 2 weeks. If the patient is to return to [place] and then he should follow-up with his doctors there and we would recommend an outpatient monitor to be done there. The patient can be discharged per the medicine service. Admission and Anticipated Discharge Date Admission Date: July 24, 2022 Subjective The patient is alert and oriented today. Conversive without any complaints. Review of Systems Review of Systems: Review of Systems: See HPI for pertinent positives. All other 10 point review of systems are negative. Physical Exam Physical Exam: General: no acute distress and stated age Head: normocephalic, no masses, lesions, tenderness or abnormalities Eyes: conjunctiva are pink and non-injected, sclera clear Neck: supple, no adenopathy, no bruits, normal jugular venous pulse, no hepatojugular reflux Chest: normal shape and normal respiratory effort Lungs: clear to auscultation and percussion Cardiac Exam: - regular rate & rhythm, no murmurs gallops or rubs - normal S1, normal S2 Pulses: 2(+) throughout Abdomen: abdomen soft, non-tender, no abnormal masses and no hepatosplenomegaly Musculoskeletal: no gait disturbance, no joint inflammation, no deforming arthritis Extremities: no edema and no cyanosis Neuro: grossly normal exam Results & Data ([facility]) Vital Signs (Past 12 Hours) Vital Signs Temp Pulse Pulse Resp BP Pulse Ox O2 Del Method 07/25/22 08:00 36.7 C 74 16 117/74 98 Room Air 07/25/22 03:31 36.7 C 78 20 126/79 100 Room Air 07/25/22 00:00 65 07/24/22 22:37 36.6 C 63 22 104/61 96 Room Air Laboratory Results Laboratory Results - last 24 hr 07/24/22 07/24/22 07/24/22 10:52 12:03 16:38 WBC RBC Hgb Hct MCV MCH MCHC RDW Std Deviation RDW Coeff of Diamond Plt Count MPV Immature Gran % (Auto) Neut % (Auto) Lymph % (Auto) Riley % (Auto) Eos % (Auto) Baso % (Auto) Neut # (Auto) Lymph # (Auto) Riley # (Auto) Eos # (Auto) Baso # (Auto) Immature Gran # (Auto) Sodium Potassium Chloride Carbon Dioxide Anion Gap BUN Creatinine Est Cr Clr Drug Dosing Est GFR ( Amer) Est GFR (Non-Af Amer) BUN/Creatinine Ratio Glucose POC Glucose 139 H 118 H Calcium Lead Pending 07/24/22 07/25/22 07/25/22 20:13 03:55 03:55 WBC 10.02 RBC 4.33 L Hgb 13.2 L Hct 39.2 L MCV 90.5 MCH 30.5 MCHC 33.7 RDW Std Deviation 40.2 RDW Coeff of Diamond 12.2 Plt Count 162 MPV 10.7 Immature Gran % (Auto) 0.5 Neut % (Auto) 71.0 Lymph % (Auto) 19.3 Riley % (Auto) 6.9 Eos % (Auto) 1.8 Baso % (Auto) 0.5 Neut # (Auto) 7.12 H Lymph # (Auto) 1.93 Riley # (Auto) 0.69 Eos # (Auto) 0.18 Baso # (Auto) 0.05 Immature Gran # (Auto) 0.05 H Sodium 134 L Potassium 3.9 Chloride 102 Carbon Dioxide 28 Anion Gap 4 BUN 12 Creatinine 1.04 Est Cr Clr Drug Dosing 105.2 Est GFR ( Amer) 87.5 Est GFR (Non-Af Amer) 75.5 BUN/Creatinine Ratio 11.5 Glucose 184 H POC Glucose 142 H Calcium 9.0 Lead 07/25/22 07:54 WBC RBC Hgb Hct MCV MCH MCHC RDW Std Deviation RDW Coeff of Diamond Plt Count MPV Immature Gran % (Auto) Neut % (Auto) Lymph % (Auto) Riley % (Auto) Eos % (Auto) Baso % (Auto) Neut # (Auto) Lymph # (Auto) Riley # (Auto) Eos # (Auto) Baso # (Auto) Immature Gran # (Auto) Sodium Potassium Chloride Carbon Dioxide Anion Gap BUN Creatinine Est Cr Clr Drug Dosing Est GFR ( Amer) Est GFR (Non-Af Amer) BUN/Creatinine Ratio Glucose POC Glucose 141 H Calcium Lead Medications Administered Current Inpatient Medications Acetaminophen (Acetaminophen 325 Mg Tab) 650 mg PO Q4H PRN PRN Reason: Pain or Fever Stop: 08/22/22 18:46 Al Hydrox/Mg Hydrox/Simethicone (Aluminum/Magnesium Susp 30 Ml Udc) 15 ml PO Q4H PRN PRN Reason: Dyspepsia Stop: 08/22/22 18:46 Aspirin (Aspirin 81 Mg Ectab) 81 mg PO DAILY [facility] Stop: 08/23/22 08:59 Last Admin: 07/24/22 08:39 Dose: 81 mg Dextrose (Dextrose 50% 50 Ml Syringe) 25 - 50 ml IV UD PRN; Protocol PRN Reason: Hypoglycemia Protocol Stop: 08/22/22 19:00 Glucagon (Glucagon For Inj 1 Mg Vial) 1 mg SQ UD PRN; Protocol PRN Reason: Hypoglycemia Protocol Stop: 08/22/22 19:00 Glucose (Glucose 40% Gel 15 Gm Tube) 15 - 30 gm PO UD PRN; Protocol PRN Reason: Hypoglycemia Protocol Stop: 08/22/22 19:00 Glucose (Glucose 10 Tab/Tube) 4 - 8 tab PO UD PRN; Protocol PRN Reason: Hypoglycemia Treatment Stop: 08/22/22 19:00 Insulin Aspart (Insulin Aspart Per Unit) 0 units SC ACHS SALO Stop: 08/22/22 20:59 Last Admin: 07/25/22 10:00 Dose: 6 units Insulin Glargine (Lantus Per Unit Charge) 15 units SQ BID SALO Stop: 08/23/22 08:59 Last Admin: 07/25/22 10:01 Dose: 15 units Losartan Potassium (Losartan Potassium 25 Mg Tab) 25 mg PO QAM [facility] Stop: 08/23/22 13:29 Last Admin: 07/25/22 09:53 Dose: 25 mg Magnesium Hydroxide (Magnesium Hydroxide Susp 30 Ml Udc) 30 ml PO Q12H PRN PRN Reason: Constipation Stop: 08/22/22 18:46 Metoprolol Succinate (Metoprolol Succ 25mg Ext Rel Tab) 12.5 mg PO QAM [facility] Stop: 08/24/22 08:59 Last Admin: 07/25/22 09:53 Dose: 12.5 mg Miscellaneous (Carbohydrates For Hypoglycemia ) 15 - 30 gm PO UD PRN PRN Reason: Hypoglycemia Protocol Stop: 08/22/22 19:00 Miscellaneous Information (Pharmacy Glycemic Mgmt Consult) 1 each N/A UD PRN PRN Reason: Consult Stop: 08/22/22 19:00 Nitroglycerin (Nitroglycerin Sl 0.4 Mg/Tab Tab) 0.4 mg SL Q5M PRN PRN Reason: chest pain Stop: 08/22/22 15:39 Last Admin: 07/24/22 13:46 Dose: 0.4 mg Ondansetron HCl (Ondansetron Inj 2 Mg/Ml 2 Ml Vial) 4 mg IV Q6H PRN PRN Reason: Nausea Stop: 08/22/22 18:46 Polyethylene Glycol (Polyethylene (Miralax) 17 Gm Pack) 17 gm PO DAILY PRN PRN Reason: Constipation Stop: 08/22/22 18:46 Rosuvastatin Calcium (Rosuvastatin Calcium 10 Mg Tab) 10 mg PO QAM [facility] Stop: 08/24/22 08:59 Last Admin: 07/25/22 09:54 Dose: 10 mg (1) Chest pain Chest pain type: unspecified Qualified Code(s): R07.9 - Chest pain, unspecified
[2022-07-25] MEDS: ASPIRIN 81 MG ECTAB PO SCH (10:58)
--- NOTE | 2022-07-25 14:43 | Hospitalist Progress Note ---
Date of Service July 25, 2022 Assessment & Plan (1) Chest pain due to CAD: (2) Left-sided weakness: (3) Altered mental status: (4) Diabetes type 2, uncontrolled: Plan 66 y/o from [place] driving through started to have chest pain and a fall this morning with LOC. Limited and unreliable PMH. Only medication is a baby aspirin. Reports having a stent placed 5 years ago along with a loop recorder but claims not seeing any primary or specialist providers. Some left upper e xtremity weakness noted. ; D-dimer elevate CTA negative. Head CT ordered. glucose 288; place on SSI. Unstable angina status postcardiac cath on 07/24 Presented with recurrent chest pain. EKG shows normal sinus rhythm with no ST or T wave changes. High sensitive troponin negative. Echo shows EF of 55 to 60% with grade 1 diastolic dysfunction. Underwent cardiac cath on 07/24 showed moderate CAD Plan: Patient is started on aspirin, rosuvastatin, losartan and metoprolol. Will need follow-up with cardiology as outpatient. Left sided weakness: Altered mental status: Stroke ruled out Difficulty with word finding and his verbiage changes when asked the same question Patient reports having a fall this morning with LOC; unsure if he hit his head Left upper extremity weaker than right upper extremity. Head CT, head/neck CTA and brain MRI negative Alcohol level negative Plan; -Continue on aspirin, Lipitor -Continue pvc monitor -PT OT. Diabetes Mellitus, Type 2: Serum glucose 288; unknown baseline A1C 9.[address] on SSI Per pt was taking Metformin but hasn't in years Plan: -Started on insulin glargine and NovoLog. -We will start him on metformin as outpatient; also benefit from SGLT2 inhibitor; will ask him to follow-up with his primary care doctor to decide on long-term care. Disposition: PCP: None VTE Prophylaxis: Lovenox SQ Code Status: Full Code Point of Contact: pt , Erica Disposition; patient lives in [facility]. Has a daughter 2 and half hours away from here. Patient reports that he needs to gain more strength in his extremity to be able to go to his daughter's house and then take a bus back home. Continue PT OT while inpatient. Admission and Anticipated Discharge Date Admission Date: July 24, 2022 Subjective Patient seen and examined at bedside. He does not complain of chest pain at the moment. Reports that the weakness in his left side has improved compared to admission. Review of Systems Review of Systems: All systems reviewed & are unremarkable except as noted in Subjective Physical Exam Physical Exam: Constitutional: WD/WN, vitals as above, NAD, sitting up in bed, pleasant, conversing easily Respiratory: normal respiratory effort, lungs clear to auscultation, no wheeze, rales, rhonchi. Normal insp/exp effort, no accessory muscle use Cardiovascular: RRR, no murmur, no edema Vessels: no JVD or carotid bruit Chest: normal inspection of chest Abdomen: normal bowel sounds, soft, nontender, no hepatosplenomegaly Musculoskeletal: no cyanosis or clubbing, extremities motor strength 5/5 Skin: no rashes, warm and dry normal turgor Neurologic: PERRL, EOMI, accommodation nl, no face palsy. Weakness in left upper and lower EXTR- 4/5. strength intact otherwise. numbness in left upper and lower extremities. Weakness slightly improved compared to yesterday. Psychiatric: A+Ox3, euthymic affect Lymphatic: no cervical or axillary lymphadenopathy : deferred Results & Data Results & Data ([facility]) Vital Signs (Past 12 Hours) Vital Signs Temp Pulse Resp BP Pulse Ox O2 Del Method 07/25/22 11:25 36.6 C 66 16 115/71 96 Room Air 07/25/22 08:00 36.7 C 74 16 117/74 98 Room Air 07/25/22 03:31 36.7 C 78 20 126/79 100 Room Air Laboratory Results Laboratory Results WBC 10.02 K/ul (4.8-10.8) 07/25/22 03:55 RBC 4.33 M/uL (4.63-6.08) L 07/25/22 03:55 Hgb 13.2 g/dl (14.0-18.0) L 07/25/22 03:55 Hct 39.2 % (40.1-51.0) L 07/25/22 03:55 MCV 90.5 fL (80.0-100.0) 07/25/22 03:55 MCH 30.5 pg (25.0-34.0) 07/25/22 03:55 MCHC 33.7 g/dL (32.0-36.0) 07/25/22 03:55 RDW Std Deviation 40.2 fL (36.4-46.3) 07/25/22 03:55 RDW Coeff of Diamond 12.2 % (11.5-14.5) 07/25/22 03:55 Plt Count 162 K/uL (130-400) 07/25/22 03:55 MPV 10.7 fL (9.4-12.4) 07/25/22 03:55 Immature Gran % (Auto) 0.5 % 07/25/22 03:55 Neut % (Auto) 71.0 % 07/25/22 03:55 Lymph % (Auto) 19.3 % 07/25/22 03:55 Hardy % (Auto) 6.9 % 07/25/22 03:55 Eos % (Auto) 1.8 % 07/25/22 03:55 Baso % (Auto) 0.5 % 07/25/22 03:55 Neut # (Auto) 7.12 K/uL (1.4-6.5) H 07/25/22 03:55 Lymph # (Auto) 1.93 K/uL (1.2-3.4) 07/25/22 03:55 Hardy # (Auto) 0.69 K/uL (0.24-0.82) 07/25/22 03:55 Eos # (Auto) 0.18 K/uL (0-0.50) 07/25/22 03:55 Baso # (Auto) 0.05 K/uL (0-0.2) 07/25/22 03:55 Immature Gran # (Auto) 0.05 K/uL (0.00-0.02) H 07/25/22 03:55 D-Dimer 530 ug/L FEU (0-500) H* 07/23/22 09:55 Sodium 134 mmol/L (136-145) L 07/25/22 03:55 Potassium 3.9 mmol/L (3.5-5.1) 07/25/22 03:55 Chloride 102 mmol/L (98-107) 07/25/22 03:55 Carbon Dioxide 28 mmol/L (21-32) 07/25/22 03:55 Anion Gap 4 (3-11) 07/25/22 03:55 BUN 12 mg/dl (6-23) 07/25/22 03:55 Creatinine 1.04 mg/dl (0.6-1.4) 07/25/22 03:55 Est Cr Clr Drug Dosing 105.2 ml/min 07/25/22 03:55 Est GFR ( Amer) 87.5 ml/min 07/25/22 03:55 Est GFR (Non-Af Amer) 75.5 ml/min 07/25/22 03:55 BUN/Creatinine Ratio 11.5 (10-20) 07/25/22 03:55 Glucose 184 mg/dl (70-99(Fasting)) H 07/25/22 03:55 POC Glucose 229 mg/dl (70-99) H 07/25/22 11:53 Estimat Average Glucose 235 mg/dl 07/23/22 16:26 Hemoglobin A1c 9.8 % (4.5-5.6) H 07/23/22 16:26 Calcium 9.0 mg/dl (8.5-10.1) 07/25/22 03:55 Phosphorus 3.4 mg/dl (2.5-4.9) 07/24/22 07:58 Magnesium 1.8 mg/dl (1.7-2.4) 07/23/22 09:55 Total Bilirubin 0.3 mg/dl (0.2-1.0) 07/23/22 09:55 Direct Bilirubin 0.1 mg/dl (0-0.2) 07/23/22 09:55 AST 33 U/L (13-39) 07/23/22 09:55 ALT 48 U/L (7-52) 07/23/22 09:55 Alkaline Phosphatase 75 U/L (34-104) 07/23/22 09:55 Troponin I High Sens 6.6 pg/ml (0-20) 07/24/22 07:58 Total Protein 7.1 gm/dl (6.0-8.3) 07/23/22 09:55 Albumin 3.5 gm/dl (3.4-5.0) 07/23/22 09:55 Triglycerides 84 mg/dl (0-150) 07/24/22 07:58 Cholesterol 125 mg/dl (0-200) 07/24/22 07:58 LDL Cholesterol, Calc 81 mg/dl 07/24/22 07:58 VLDL Cholesterol, Calc 17 mg/dl (0-30) 07/24/22 07:58 HDL Cholesterol 27 mg/dl 07/24/22 07:58 Cholesterol/HDL Ratio 4.6 (0-5) 07/24/22 07:58 Lipase 64 U/L (11-82) 07/23/22 09:55 Urine Color Yellow 07/23/22 21:20 Urine Appearance Clear (Clear) 07/23/22 21:20 Urine pH 5.5 (4.5-7.5) 07/23/22 21:20 Ur Specific [place] > 1.045 (1.000-1.030) H 07/23/22 21:20 Urine Protein Negative (Negative) 07/23/22 21:20 Urine Glucose (UA) 2+ (Negative) H 07/23/22 21:20 Urine Ketones Negative (Negative) 07/23/22 21:20 Urine Blood Negative (Negative) 07/23/22 21:20 Urine Nitrite Negative (Negative) 07/23/22 21:20 Urine Bilirubin Negative (Negative) 07/23/22 21:20 Urine Urobilinogen Negative (Negative) 07/23/22 21:20 Ur Leukocyte Esterase Negative (Negative) 07/23/22 21:20 Urine Opiates Screen Pos (Neg) H 07/23/22 16:20 Ur Methadone, Qual Neg (Neg) 07/23/22 16:20 Urine Barbiturates Neg (Neg) 07/23/22 16:20 Ur Phencyclidine (PCP) Neg (Neg) 07/23/22 16:20 U Amphetamin/Meth Scrn Neg (Neg) 07/23/22 16:20 MDMA (Ecstasy) Screen Neg (Neg) 07/23/22 16:20 U Benzodiazepines Scrn Neg (Neg) 07/23/22 16:20 Ur Cocaine Metabolite Neg (Neg) 07/23/22 16:20 U Marijuana (THC) Screen Neg (Neg) 07/23/22 16:20 Ethyl Alcohol mg/dL < 10.0 mg/dl (<10.0) 07/23/22 17:06 SARS-CoV-2, RNA, NAAT NEGATIVE (NEGATIVE) 07/23/22 10:30 Impressions Chest X-Ray 07/23/22 10:07 SINGLE VIEW CHEST CLINICAL HISTORY: Atypical chest pain FINDINGS: 2 AP, portable, upright chest radiographs are obtained. No prior studies are available for comparison at the time of dictation. An electronic device projects over the left chest. The heart is mildly enlarged noting atherosclerotic calcification of the thoracic aorta. The pulmonary vasculature is noncongested. There is mild bibasilar atelectasis. The lungs and pleural spaces are otherwise clear. No pneumothorax is seen. The bony thorax is grossly intact. IMPRESSION: Cardiomegaly with no acute cardiopulmonary abnormality. ACT 112: Negative or not required by law. Electronically signed by: Jordon Tao M.D. 07/23/2022 10:42 AM Chest CTA 07/23/22 11:31 CT angio chest PE protocol CLINICAL HISTORY: Chest pain, elevated dimer TECHNIQUE: Multidetector row helical CT of the chest was performed with angiographic protocol. Coronal and sagittal reformations were obtained. Coronal and sagittal MIPS were obtained from the axial data set and were submitted for review. Automated dose lowering techniques and/or adjustment according to patient size were utilized for this exam. CT DOSE: 576.96 mGycm Comparison: Comparison is made to chest radiograph 07/23/2022 FINDINGS: Lungs and pleura: Mild dependent atelectasis is seen. Heart and pericardium: Heart size is normal. No pericardial effusion. Vessels: No evidence of pulmonary embolism. Mediastinum and gladys: Unremarkable. Chest wall and lower neck: Subcentimeter thyroid nodules are noted which do not require follow-up by ACR criteria. Abdomen: A hiatal hernia is seen. Bones: Degenerative changes in the thoracic spine. IMPRESSION: No evidence of pulmonary embolism. ACT 112: Negative or not required by law. Electronically signed by: Kolby Sparks M.D. 07/23/2022 1:[address] 07/23/22 15:[address] DOSE: 821.00 mGycm HISTORY: Fall. Loss of consciousness. TECHNIQUE: Multiaxial CT images of the head were performed without the use of intravenous contrast. Automated exposure control was utilized for this study. A dose lowering technique was utilized adhering to the principles of ALARA. Comparison: None. Findings: The paranasal sinuses and mastoid air cells are clear. The calvarium and skull base are intact. The ventricles and sulci are within normal limits. There is no mass, hematoma, midline shift, or acute infarct. There is residual contrast within the brain from the recent chest CTA. This could result in suboptimal evaluation for intracranial hemorrhage. Impression: No definite acute intracranial abnormality. ACT 112: Negative or not required by law. Electronically signed by: Jem Ochoa M.D. 07/23/2022 4:14 PM Head CTA 07/23/22 16:48 HEAD & NECK CTA HISTORY: right sided weakness TECHNIQUE: Multiaxial CT images of the head were performed following the intravenous administration of contrast to evaluate the major cerebral vessels. Multiaxial CT images of the neck were also performed following the intravenous administration of contrast to evaluate the major cervical vessels. Maximum intensity projection images were also obtained. A dose lowering technique was utilized adhering to the principles of ALARA. COMPARISON: Head CT 07/23/2022. FINDINGS: There is no mass, hematoma, midline shift, or acute infarct. Visualized intracranial internal carotid arteries, distal vertebral arteries, and basilar artery are widely patent. There is no significant stenosis, occlusion, or aneurysm seen within the bilateral ACAs, MCAs, or director of retail analytics. There is a retention cyst within the left maxillary sinus. The major dural venous sinuses are patent. There is a single A2 segment which is considered to be a normal variant. The aortic arch and proximal great vessels are widely patent. There is no significant stenosis, occlusion, or dissection identified within the bilateral common carotid, internal carotid, or vertebral arteries. Diffusely enlarged thyroid gland consistent with a goiter. This appears to contain a few subcentimeter thyroid nodules which do not meet CT criteria for follow-up. Mild atherosclerotic plaque within the proximal left internal carotid artery without high-grade stenosis. IMPRESSION: 1. No significant stenosis, occlusion, or aneurysm within the [place]. 2. No significant stenosis, occlusion, or dissection identified within the carotid or vertebral arteries. ACT 112: Negative or not required by law. Electronically signed by: Jem Ochoa M.D. 07/23/2022 5:57 PM Neck CTA 07/23/22 16:52 HEAD & NECK CTA HISTORY: right sided weakness TECHNIQUE: Multiaxial CT images of the head were performed following the intravenous administration of contrast to evaluate the major cerebral vessels. Multiaxial CT images of the neck were also performed following the intravenous administration of contrast to evaluate the major cervical vessels. Maximum intensity projection images were also obtained. A dose lowering technique was utilized adhering to the principles of ALARA. COMPARISON: Head CT 07/23/2022. FINDINGS: There is no mass, hematoma, midline shift, or acute infarct. Visualized intracranial internal carotid arteries, distal vertebral arteries, and basilar artery are widely patent. There is no significant stenosis, occlusion, or aneurysm seen within the bilateral ACAs, MCAs, or director of retail analytics. There is a retention cyst within the left maxillary sinus. The major dural venous sinuses are patent. There is a single A2 segment which is considered to be a normal variant. The aortic arch and proximal great vessels are widely patent. There is no significant stenosis, occlusion, or dissection identified within the bilateral common carotid, internal carotid, or vertebral arteries. Diffusely enlarged thyroid gland consistent with a goiter. This appears to contain a few subcentimeter thyroid nodules which do not meet CT criteria for follow-up. Mild atherosclerotic plaque within the proximal left internal carotid artery without high-grade stenosis. IMPRESSION: 1. No significant stenosis, occlusion, or aneurysm within the [place]. 2. No significant stenosis, occlusion, or dissection identified within the carotid or vertebral arteries. ACT 112: Negative or not required by law. Electronically signed by: Jem Ochoa M.D. 07/23/2022 5:57 PM Brain MRI 07/23/22 16:59 Brain MRI WITHOUT CONTRAST HISTORY: Left-sided numbness and weakness. TECHNIQUE: Multiplanar multisequence MRI of the brain was performed without the use of contrast. COMPARISON STUDY: Head CT 07/23/2022. FINDINGS: There are no areas of restricted diffusion to suggest acute infarction. The midline structures are intact. A left maxillary sinus retention cyst is again noted. The mastoid air cells are clear. The ventricles and sulci are within normal limits for age. There is no mass, hematoma, midline shift. The major vascular flow-voids at the skull base are well maintained. IMPRESSION: No acute intracranial abnormality. ACT 112: Negative or not required by law. Electronically signed by: Jem Ochoa M.D. 07/23/2022 6:24 PM
[2022-07-26 02:57] LABS: Codeine Urine NEGATIVE ng/mL (<50); Hydrocodone Urine NEGATIVE ng/mL (<50); Hydromor Urine 690 ng/mL (<50); Morphine Urine NEGATIVE ng/mL (<50); Norhydrocodone Conf Ur NEGATIVE ng/mL (<50); Noroxycodone Urine NEGATIVE ng/mL (<50); Oxycodone Urine NEGATIVE ng/mL (<50); Oxymorph Urine NEGATIVE ng/mL (<50)
[2022-07-26 04:53] LABS: Basophils # (auto) 0.05 K/uL (0-0.2); Basophils % (auto) 0.5 %; Eosinophils # (auto) 0.17 K/uL (0-0.50); Eosinophils % (auto) 1.8 %; Hematocrit (blood only) 39.7 % (40.1-51.0); Hemoglobin 13.7 g/dl (14.0-18.0); Immature Granulocytes # (auto) 0.05 K/uL (0.00-0.02); Immature Granulocytes % (auto) 0.5 %; Lymphocytes # (auto) 2.61 K/uL (1.2-3.4); Lymphocytes % (auto) 27.6 %; Mean Corpuscular Hemoglobin 30.9 pg (25.0-34.0); Mean Corpuscular Hgb Conc 34.5 g/dL (32.0-36.0); Mean Corpuscular Volume 89.6 fL (80.0-100.0); Mean Platelet Volume 10.7 fL (9.4-12.4); Monocytes # (auto) 0.67 K/uL (0.24-0.82); Monocytes % (auto) 7.1 %; Neutrophils # (auto) 5.91 K/uL (1.4-6.5); Neutrophils % (auto) 62.5 %; Platelet Count 182 K/uL (130-400); RDW Coefficient of Variation 12.2 % (11.5-14.5); RDW Standard Deviation 40.3 fL (36.4-46.3); Red Blood Count 4.43 M/uL (4.63-6.08); White Blood Count 9.46 K/ul (4.8-10.8)
[2022-07-26 05:14] LABS: BUN Creatinine Ratio 15.1 (10-20); Creatinine Clr Calc Pharmacy 126.9 ml/min; Est GFR (African American) 106.2 ml/min; Est GFR (Non-African American) 91.6 ml/min; Potassium 3.9 mmol/L (3.5-5.1)
[2022-07-26] MEDS: LOSARTAN POTASSIUM 25 MG TAB PO SCH (08:32)
[2022-07-26] MEDS: METOPROLOL SUCC 25MG EXT REL TAB PO SCH (08:32)
[2022-07-26] MEDS: ASPIRIN 81 MG ECTAB PO SCH (08:32)
[2022-07-26] MEDS: ROSUVASTATIN CALCIUM 10 MG TAB PO SCH (08:33)
[2022-07-26] MEDS: LANTUS PER UNIT CHARGE SQ SCH ×2 (08:40→21:06)
[2022-07-26] MEDS: INSULIN ASPART PER UNIT SC SCH ×4 (08:47→21:06)
--- NOTE | 2022-07-26 11:04 | Electrocardiogram Report ---
Test Reason : Blood Pressure : / mmHG Vent. Rate : 065 BPM Atrial Rate : 065 BPM P-R Int : 188 ms QRS Dur : 082 ms QT Int : 386 ms P-R-T Axes : -01 -09 033 degrees QTc Int : 401 ms Normal sinus rhythm Low voltage QRS Borderline ECG When compared with ECG of 24-JUL-2022 09:52, No significant change was found Confirmed by Salbador Zhang ([id number]) on 07/26/2022 11:03:58 AM Referred By: REFERRED SELF Confirmed By:Salbador Zhang
--- NOTE | 2022-07-26 11:28 | Electrocardiogram Report ---
Test Reason : Blood Pressure : / mmHG Vent. Rate : 060 BPM Atrial Rate : 060 BPM P-R Int : 188 ms QRS Dur : 082 ms QT Int : 410 ms P-R-T Axes : -02 -07 024 degrees QTc Int : 410 ms Normal sinus rhythm Low voltage QRS Borderline ECG When compared with ECG of 25-JUL-2022 06:30, No significant change was found Confirmed by Salbador Zhang ([id number]) on 07/26/2022 11:28:32 AM Referred By: REFERRED SELF Confirmed By:Salbador Zhang
--- NOTE | 2022-07-26 14:00 | Hospitalist Progress Note ---
Date of Service July 26, 2022 Assessment & Plan (1) Chest pain due to CAD: (2) Left-sided weakness: (3) Altered mental status: (4) Diabetes type 2, uncontrolled: Plan 66 y/o from [place] driving through started to have chest pain and a fall this morning with LOC. Limited and unreliable PMH. Only medication is a baby aspirin. Reports having a stent placed 5 years ago along with a loop recorder but claims not seeing any primary or specialist providers. Some left upper e xtremity weakness noted. ; D-dimer elevate CTA negative. Head CT ordered. glucose 288; place on SSI. Unstable angina status postcardiac cath on 07/24 Presented with recurrent chest pain. EKG shows normal sinus rhythm with no ST or T wave changes. High sensitive troponin negative. Echo shows EF of 55 to 60% with grade 1 diastolic dysfunction. Underwent cardiac cath on 07/24 showed moderate CAD Plan: Patient is started on aspirin, rosuvastatin, losartan and metoprolol. Will need follow-up with cardiology as outpatient. Left sided weakness: Altered mental status: Stroke ruled out Difficulty with word finding and his verbiage changes when asked the same question Patient reports having a fall this morning with LOC; unsure if he hit his head Left upper extremity weaker than right upper extremity. 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 Diabetes Mellitus, Type 2: Serum glucose 288; unknown baseline A1C 9.[address] on SSI Per pt was taking Metformin but hasn't in years Plan: -Started on insulin glargine and NovoLog. -We will start him on metformin as outpatient; also benefit from SGLT2 inhibitor; will ask him to follow-up with his primary care doctor to decide on long-term care. Disposition: PCP: None VTE Prophylaxis: Lovenox SQ Code Status: Full Code Point of Contact: pt , Erica Disposition; patient lives in [facility]. Has a daughter 2 and half hours away from here. Patient said that he can be picked up by his daughter tomorrow morning and will take a bus to [place]. He asked me to send over prescription to [facility] pharmacy in [place], [place]. Patient said he will follow up with his PCP. Likely dc tomorrow. Admission and Anticipated Discharge Date Admission Date: July 24, 2022 Subjective Patient seen and examined at bedside. He is comfortably lying in the bed; not in any distress. He reports that his weakness has improved compared to admission. Noted to move his left side well spontaneously. During examination, patient demonstrated poor effort. He is able to walk without any difficulties to the bathroom. Review of Systems Review of Systems: All systems reviewed & are unremarkable except as noted in Subjective Physical Exam Physical Exam: Constitutional: WD/WN, vitals as above, NAD, sitting up in bed, pleasant, conversing easily Respiratory: normal respiratory effort, lungs clear to auscultation, no wheeze, rales, rhonchi. Normal insp/exp effort, no accessory muscle use Cardiovascular: RRR, no murmur, no edema Vessels: no JVD or carotid bruit Chest: normal inspection of chest Abdomen: normal bowel sounds, soft, nontender, no hepatosplenomegaly Musculoskeletal: no cyanosis or clubbing, extremities motor strength 5/5 Skin: no rashes, warm and dry normal turgor Neurologic: PERRL, EOMI, accommodation nl, no face palsy. Weakness in left upper and lower EXTR- 4/5. strength intact otherwise. numbness in left upper and lower extremities. Weakness improved compared to yesterday. Psychiatric: A+Ox3, euthymic affect Lymphatic: no cervical or axillary lymphadenopathy : deferred Results & Data Results & Data ([facility]) Vital Signs (Past 12 Hours) Vital Signs Temp Pulse Pulse Resp BP Pulse Ox O2 Del Method 07/26/22 11:33 36.4 C L 57 L 16 119/72 95 Room Air 07/26/22 08:00 78 07/26/22 08:00 59 L 07/26/22 07:27 36.5 C 93 H 16 138/76 96 Room Air 07/26/22 02:45 36.5 C 59 L 18 104/64 96 Room Air Laboratory Results Laboratory Results WBC 9.46 K/ul (4.8-10.8) 07/26/22 04:24 RBC 4.43 M/uL (4.63-6.08) L 07/26/22 04:24 Hgb 13.7 g/dl (14.0-18.0) L 07/26/22 04:24 Hct 39.7 % (40.1-51.0) L 07/26/22 04:24 MCV 89.6 fL (80.0-100.0) 07/26/22 04:24 MCH 30.9 pg (25.0-34.0) 07/26/22 04:24 MCHC 34.5 g/dL (32.0-36.0) 07/26/22 04:24 RDW Std Deviation 40.3 fL (36.4-46.3) 07/26/22 04:24 RDW Coeff of Diamond 12.2 % (11.5-14.5) 07/26/22 04:24 Plt Count 182 K/uL (130-400) 07/26/22 04:24 MPV 10.7 fL (9.4-12.4) 07/26/22 04:24 Immature Gran % (Auto) 0.5 % 07/26/22 04:24 Neut % (Auto) 62.5 % 07/26/22 04:24 Lymph % (Auto) 27.6 % 07/26/22 04:24 [place] % (Auto) 7.1 % 07/26/22 04:24 Eos % (Auto) 1.8 % 07/26/22 04:24 Baso % (Auto) 0.5 % 07/26/22 04:24 Neut # (Auto) 5.91 K/uL (1.4-6.5) 07/26/22 04:24 Lymph # (Auto) 2.61 K/uL (1.2-3.4) 07/26/22 04:24 [place] # (Auto) 0.67 K/uL (0.24-0.82) 07/26/22 04:24 Eos # (Auto) 0.17 K/uL (0-0.50) 07/26/22 04:24 Baso # (Auto) 0.05 K/uL (0-0.2) 07/26/22 04:24 Immature Gran # (Auto) 0.05 K/uL (0.00-0.02) H 07/26/22 04:24 D-Dimer 530 ug/L FEU (0-500) H* 07/23/22 09:55 Sodium 136 mmol/L (136-145) 07/26/22 04:24 Potassium 3.9 mmol/L (3.5-5.1) 07/26/22 04:24 Chloride 104 mmol/L (98-107) 07/26/22 04:24 Carbon Dioxide 28 mmol/L (21-32) 07/26/22 04:24 Anion Gap 4 (3-11) 07/26/22 04:24 BUN 13 mg/dl (6-23) 07/26/22 04:24 Creatinine 0.86 mg/dl (0.6-1.4) 07/26/22 04:24 Est Cr Clr Drug Dosing 126.9 ml/min 07/26/22 04:24 Est GFR ( Amer) 106.2 ml/min 07/26/22 04:24 Est GFR (Non-Af Amer) 91.6 ml/min 07/26/22 04:24 BUN/Creatinine Ratio 15.1 (10-20) 07/26/22 04:24 Glucose 188 mg/dl (70-99(Fasting)) H 07/26/22 04:24 POC Glucose 192 mg/dl (70-99) H 07/26/22 11:56 Estimat Average Glucose 235 mg/dl 07/23/22 16:26 Hemoglobin A1c 9.8 % (4.5-5.6) H 07/23/22 16:26 Calcium 9.0 mg/dl (8.5-10.1) 07/26/22 04:24 Phosphorus 3.4 mg/dl (2.5-4.9) 07/24/22 07:58 Magnesium 1.8 mg/dl (1.7-2.4) 07/23/22 09:55 Total Bilirubin 0.3 mg/dl (0.2-1.0) 07/23/22 09:55 Direct Bilirubin 0.1 mg/dl (0-0.2) 07/23/22 09:55 AST 33 U/L (13-39) 07/23/22 09:55 ALT 48 U/L (7-52) 07/23/22 09:55 Alkaline Phosphatase 75 U/L (34-104) 07/23/22 09:55 Troponin I High Sens 6.6 pg/ml (0-20) 07/24/22 07:58 Total Protein 7.1 gm/dl (6.0-8.3) 07/23/22 09:55 Albumin 3.5 gm/dl (3.4-5.0) 07/23/22 09:55 Triglycerides 84 mg/dl (0-150) 07/24/22 07:58 Cholesterol 125 mg/dl (0-200) 07/24/22 07:58 LDL Cholesterol, Calc 81 mg/dl 07/24/22 07:58 VLDL Cholesterol, Calc 17 mg/dl (0-30) 07/24/22 07:58 HDL Cholesterol 27 mg/dl 07/24/22 07:58 Cholesterol/HDL Ratio 4.6 (0-5) 07/24/22 07:58 Lipase 64 U/L (11-82) 07/23/22 09:55 Urine Color Yellow 07/23/22 21:20 Urine Appearance Clear (Clear) 07/23/22 21:20 Urine pH 5.5 (4.5-7.5) 07/23/22 21:20 Ur Specific [place] > 1.045 (1.000-1.030) H 07/23/22 21:20 Urine Protein Negative (Negative) 07/23/22 21:20 Urine Glucose (UA) 2+ (Negative) H 07/23/22 21:20 Urine Ketones Negative (Negative) 07/23/22 21:20 Urine Blood Negative (Negative) 07/23/22 21:20 Urine Nitrite Negative (Negative) 07/23/22 21:20 Urine Bilirubin Negative (Negative) 07/23/22 21:20 Urine Urobilinogen Negative (Negative) 07/23/22 21:20 Ur Leukocyte Esterase Negative (Negative) 07/23/22 21:20 Urine Opiates Screen Pos (Neg) H 07/23/22 16:20 U Codeine Confrm GC/MS NEGATIVE ng/mL (<50) 07/23/22 16:20 Ur Morphine (GC/MS) NEGATIVE ng/mL (<50) 07/23/22 16:20 Ur Hydrocodone (GC/MS) NEGATIVE ng/mL (<50) 07/23/22 16:20 Ur Norhydrocodone NEGATIVE ng/mL (<50) 07/23/22 16:20 Ur Noroxycodone NEGATIVE ng/mL (<50) 07/23/22 16:20 Urine Oxycodone (GC/MS) NEGATIVE ng/mL (<50) 07/23/22 16:20 U Oxymorphone GC/MS NEGATIVE ng/mL (<50) 07/23/22 16:20 Ur Methadone, Qual Neg (Neg) 07/23/22 16:20 Ur Hydromorphone (GC/MS) 690 ng/mL (<50) H 07/23/22 16:20 Urine Barbiturates Neg (Neg) 07/23/22 16:20 Ur Phencyclidine (PCP) Neg (Neg) 07/23/22 16:20 U Amphetamin/Meth Scrn Neg (Neg) 07/23/22 16:20 MDMA (Ecstasy) Screen Neg (Neg) 07/23/22 16:20 U Benzodiazepines Scrn Neg (Neg) 07/23/22 16:20 Ur Cocaine Metabolite Neg (Neg) 07/23/22 16:20 U Marijuana (THC) Screen Neg (Neg) 07/23/22 16:20 Drug Screen Comment SEE NOTE 07/23/22 16:20 Ethyl Alcohol mg/dL < 10.0 mg/dl (<10.0) 07/23/22 17:06 SARS-CoV-2, RNA, NAAT NEGATIVE (NEGATIVE) 07/23/22 10:30 Impressions Chest X-Ray 07/23/22 10:07 SINGLE VIEW CHEST CLINICAL HISTORY: Atypical chest pain FINDINGS: 2 AP, portable, upright chest radiographs are obtained. No prior studies are available for comparison at the time of dictation. An electronic device projects over the left chest. The heart is mildly enlarged noting atherosclerotic calcification of the thoracic aorta. The pulmonary vasculature is noncongested. There is mild bibasilar atelectasis. The lungs and pleural spaces are otherwise clear. No pneumothorax is seen. The bony thorax is grossly intact. IMPRESSION: Cardiomegaly with no acute cardiopulmonary abnormality. ACT 112: Negative or not required by law. Electronically signed by: Jordon Tao M.D. 07/23/2022 10:42 AM Chest CTA 07/23/22 11:31 CT angio chest PE protocol CLINICAL HISTORY: Chest pain, elevated dimer TECHNIQUE: Multidetector row helical CT of the chest was performed with angiographic protocol. Coronal and sagittal reformations were obtained. Coronal and sagittal MIPS were obtained from the axial data set and were submitted for review. Automated dose lowering techniques and/or adjustment according to patient size were utilized for this exam. CT DOSE: 576.96 mGycm Comparison: Comparison is made to chest radiograph 07/23/2022 FINDINGS: Lungs and pleura: Mild dependent atelectasis is seen. Heart and pericardium: Heart size is normal. No pericardial effusion. Vessels: No evidence of pulmonary embolism. Mediastinum and gladys: Unremarkable. Chest wall and lower neck: Subcentimeter thyroid nodules are noted which do not require follow-up by ACR criteria. Abdomen: A hiatal hernia is seen. Bones: Degenerative changes in the thoracic spine. IMPRESSION: No evidence of pulmonary embolism. ACT 112: Negative or not required by law. Electronically signed by: Kolby Sparks M.D. 07/23/2022 1:[address] 07/23/22 15:[address] DOSE: 821.00 mGycm HISTORY: Fall. Loss of consciousness. TECHNIQUE: Multiaxial CT images of the head were performed without the use of intravenous contrast. Automated exposure control was utilized for this study. A dose lowering technique was utilized adhering to the principles of ALARA. Comparison: None. Findings: The paranasal sinuses and mastoid air cells are clear. The calvarium and skull base are intact. The ventricles and sulci are within normal limits. There is no mass, hematoma, midline shift, or acute infarct. There is residual contrast within the brain from the recent chest CTA. This could result in suboptimal evaluation for intracranial hemorrhage. Impression: No definite acute intracranial abnormality. ACT 112: Negative or not required by law. Electronically signed by: Jem Ochoa M.D. 07/23/2022 4:14 PM Head CTA 07/23/22 16:48 HEAD & NECK CTA HISTORY: right sided weakness TECHNIQUE: Multiaxial CT images of the head were performed following the intravenous administration of contrast to evaluate the major cerebral vessels. Multiaxial CT images of the neck were also performed following the intravenous administration of contrast to evaluate the major cervical vessels. Maximum intensity projection images were also obtained. A dose lowering technique was utilized adhering to the principles of ALARA. COMPARISON: Head CT 07/23/2022. FINDINGS: There is no mass, hematoma, midline shift, or acute infarct. Visualized intracranial internal carotid arteries, distal vertebral arteries, and basilar artery are widely patent. There is no significant stenosis, occlusion, or aneurysm seen within the bilateral ACAs, MCAs, or gear cutting machine operator. There is a retention cyst within the left maxillary sinus. The major dural venous sinuses are patent. There is a single A2 segment which is considered to be a normal variant. The aortic arch and proximal great vessels are widely patent. There is no significant stenosis, occlusion, or dissection identified within the bilateral common carotid, internal carotid, or vertebral arteries. Diffusely enlarged thyroid gland consistent with a goiter. This appears to contain a few subcentimeter thyroid nodules which do not meet CT criteria for follow-up. Mild atherosclerotic plaque within the proximal left internal carotid artery without high-grade stenosis. IMPRESSION: 1. No significant stenosis, occlusion, or aneurysm within the [facility] [place]. 2. No significant stenosis, occlusion, or dissection identified within the carotid or vertebral arteries. ACT 112: Negative or not required by law. Electronically signed by: Jem Ochoa M.D. 07/23/2022 5:57 PM Neck CTA 07/23/22 16:52 HEAD & NECK CTA HISTORY: right sided weakness TECHNIQUE: Multiaxial CT images of the head were performed following the intravenous administration of contrast to evaluate the major cerebral vessels. Multiaxial CT images of the neck were also performed following the intravenous administration of contrast to evaluate the major cervical vessels. Maximum intensity projection images were also obtained. A dose lowering technique was utilized adhering to the principles of ALARA. COMPARISON: Head CT 07/23/2022. FINDINGS: There is no mass, hematoma, midline shift, or acute infarct. Visualized intracranial internal carotid arteries, distal vertebral arteries, and basilar artery are widely patent. There is no significant stenosis, occlusion, or aneurysm seen within the bilateral ACAs, MCAs, or gear cutting machine operator. There is a retention cyst within the left maxillary sinus. The major dural venous sinuses are patent. There is a single A2 segment which is considered to be a normal variant. The aortic arch and proximal great vessels are widely patent. There is no significant stenosis, occlusion, or dissection identified within the bilateral c ommon carotid, internal carotid, or vertebral arteries. Diffusely enlarged thyroid gland consistent with a goiter. This appears to contain a few subcentimeter thyroid nodules which do not meet CT criteria for follow-up. Mild atherosclerotic plaque within the proximal left internal carotid artery without high-grade stenosis. IMPRESSION: 1. No significant stenosis, occlusion, or aneurysm within the [facility] [place]. 2. No significant stenosis, occlusion, or dissection identified within the carotid or vertebral arteries. ACT 112: Negative or not required by law. Electronically signed by: Jem Ochoa M.D. 07/23/2022 5:57 PM Brain MRI 07/23/22 16:59 Brain MRI WITHOUT CONTRAST HISTORY: Left-sided numbness and weakness. TECHNIQUE: Multiplanar multisequence MRI of the brain was performed without the use of contrast. COMPARISON STUDY: Head CT 07/23/2022. FINDINGS: There are no areas of restricted diffusion to suggest acute infarction . The midline structures are intact. A left maxillary sinus retention cyst is again noted. The mastoid air cells are clear. The ventricles and sulci are within normal limits for age. There is no mass, hematoma, midline shift. The major vascular flow-voids at the skull base are well maintained. IMPRESSION: No acute intracranial abnormality. ACT 112: Negative or not required by law. Electronically signed by: Jem Ochoa M.D. 07/23/2022 6:24 PM
--- NOTE | 2022-07-26 14:23 | Pharmacy Report ---
Pharmacy Glycemic Short Note 2 - Date of Service July 26, 2022 - Glycemic Short BSG Results (Last 24 hours): 07/25/22 07/25/22 07/26/22 17:02 20:04 04:24 Glucose 188 H POC Glucose 246 H 200 H 07/26/22 07/26/22 07:50 11:56 Glucose POC Glucose 165 H 192 H OUTPATIENT ANTIDIABETIC REGIMEN: * N/A, previously on metformin, but hasn't taken in years per H&P * HbA1c: 9.8% (07/23/22) ASSESSMENT: 07/26: * Epifanio received 55 units of SQ insulin yesterday with the majority of BSGs above goal * 30 units basal + 25 units bolus * BSGs: 141, 229, 246, 200 mg/dL * Fasting BSG remains elevated. Increase Lantus by 20%. * Post prandial hyperglycemia. Will tighten Novolog parameters. 07/24: * BSGs have been fairly well-controlled today. * Lantus daily dose increased slightly today for fasting BSG above goal. * Novolog parameters loosened slightly as Lantus approaches steady-state, in an attempt to avoid hypoglycemia. * Will continue to follow and adjust as indicated. 07/23 * HC is a 66 year old male who presents with chest pain and fall with loss of consciousness * BSG in ED of 288 mg/dL, 239 mg/dL upon admission to floor * Patient has T2DM, but does not take any medications as an outpatient (previously on metformin) * Will start with weight-based stress of 2 Novolog and ~0.2 unit/kg basal PLAN FOR INPATIENT GLYCEMIC CONTROL: * Basal insulin * Lantus 18 units SQ BID * Bolus insulin * NovoLog per scale ACHS or Q6hrs while NPO * Goal Range: Low 110 mg/dL - High 140 mg/dL * Correction Factor: 20 mg/dL/unit * Nutritional / Prandial insulin per carb ratio of 1 unit per 6 grams CHO consumed
[2022-07-27] MEDS ORDERED: OPTIRAY 320 500ml IV ONE (06:17)
[2022-07-27] MEDS ORDERED: PHARMACIST DISCHARGE MED REC CONSULT PRN (06:56)
--- NOTE | 2022-07-27 07:16 | CT Scan Report ---
HEAD CT NONCONTRAST CT DOSE: HISTORY: Left-sided weakness. Slurred speech. TECHNIQUE: Multiaxial CT images of the head were performed without the use of intravenous contrast. A utomated exposure control was utilized for this study. A dose lowering technique was utilized adheri ng to the principles of ALARA. Comparison: None. Findings: The paranasal sinuses and mastoid air cells are clear. The calvarium and skull base are int act. The ventricles and sulci are within normal limits. There is no mass, hematoma, midline shift, or acute infarct. Impression: No acute intracranial abnormality. ACT 112: Negative or not required by law. Electronically signed by: Jem Ochoa M.D. 07/27/2022 7:15 AM
--- NOTE | 2022-07-27 07:19 | CT Scan Report ---
HEAD & NECK CTA HISTORY: Left-sided weakness. TECHNIQUE: Multiaxial CT images of the head were performed following the intravenous administration o f contrast to evaluate the major cerebral vessels. Multiaxial CT images of the neck were also perform ed following the intravenous administration of contrast to evaluate the major cervical vessels. Maxim um intensity projection images were also obtained. A dose lowering technique was utilized adhering to the principles of ALARA. COMPARISON: Head and neck CTA 07/23/2022. FINDINGS: There is no mass, hematoma, midline shift, or acute infarct. Visualized intracranial internal carotid arteries, distal vertebral arteries, and basilar artery are widely patent. There is no significant s tenosis, occlusion, or aneurysm seen within the bilateral ACAs, MCAs, or silver spray worker. The major dural venous sinuses are patent. The aortic arch and proximal great vessels are widely patent. There is no significant stenosis, occ lusion, or dissection identified within the bilateral common carotid, internal carotid, or vertebral arteries. IMPRESSION: 1. No significant stenosis, occlusion, or aneurysm within the [place]. 2. No significant stenosis, occlusion, or dissection identified within the carotid or vertebral arter ies. ACT 112: Negative or not required by law. Electronically signed by: Jem Ochoa M.D. 07/27/2022 7:18 AM
--- NOTE | 2022-07-27 07:19 | CT Scan Report ---
HEAD & NECK CTA HISTORY: Left-sided weakness. TECHNIQUE: Multiaxial CT images of the head were performed following the intravenous administration o f contrast to evaluate the major cerebral vessels. Multiaxial CT images of the neck were also perform ed following the intravenous administration of contrast to evaluate the major cervical vessels. Maxim um intensity projection images were also obtained. A dose lowering technique was utilized adhering to the principles of ALARA. COMPARISON: Head and neck CTA 07/23/2022. FINDINGS: There is no mass, hematoma, midline shift, or acute infarct. Visualized intracranial internal carotid arteries, distal vertebral arteries, and basilar artery are widely patent. There is no significant s tenosis, occlusion, or aneurysm seen within the bilateral ACAs, MCAs, or resident services coordinator. The major dural venous sinuses are patent. The aortic arch and proximal great vessels are widely patent. There is no significant stenosis, occ lusion, or dissection identified within the bilateral common carotid, internal carotid, or vertebral arteries. IMPRESSION: 1. No significant stenosis, occlusion, or aneurysm within the [place]. 2. No significant stenosis, occlusion, or dissection identified within the carotid or vertebral arter ies. ACT 112: Negative or not required by law. Electronically signed by: Jem Ochoa M.D. 07/27/2022 7:18 AM
[2022-07-27] MEDS: CLOPIDOGREL BISULFATE 300 MG TAB PO ONE ×2 (07:25→07:29)
[2022-07-27] MEDS: SODIUM CHLORIDE 0.9% 1000ML 1,000 ML IV SCH ×2 (07:25→17:20)
[2022-07-27] MEDS ORDERED: Nursing to Pharmacy Communication SCH (07:45)
[2022-07-27] MEDS: INSULIN ASPART PER UNIT SC SCH ×4 (07:55→21:02)
--- NOTE | 2022-07-27 08:12 | Communication Note ---
Date of Service: July 27, 2022 Stroke Alert: As per Nursing staff patient seemed fine at 3:30am when he checked his vitals. And Around 5;40am he was having garbled speech and left sided weakness and stroke alert was called. Went and saw the patient. He was not able to left his left extremities and having twitching of right eye, Speech was sometimes garbled and sometimes pressured and sometimes ok. Had stat ct head, CTA head and neck and transferred to ICU. Notified [place] stroke Neurology. Dr.Nagaraju Armenta stroke neurology came on telemonitor and examined the patient. Patient symptoms remained same. He presented to hospital on jul 23 with similar presentation and he had Cta head and neck and MRi on same day jul 23 and wee unremarkable. Today also stat radiology called and said his cta head and neck unremarkable. Patient also said his left sided weakness which he came on jul 23 not completely resolved, he still had some weakness and it got worse tonight. Based on history and findings of opinion that he might had small stroke which was not picked up on initial mri and recommended repeat mri and add plavix to aspirin and continue dual antiplatelets for one month and at which time just to continue with one of them. Also to allow permissive HTN upto SBP 180. To hold BP meds if cardiology ok. To give iv fluids. Also said not a tpa candidate as his initial symptoms which he came on jul 23 not completely resolved and having worsening of same symptoms.Notified am provider. said he will call the daughter as he already talked to her earlier.
[2022-07-27] MEDS ORDERED: GADOBUTROL 65ML VIAL IV ONE ×2 (08:29→22:06)
--- NOTE | 2022-07-27 08:42 | Magnetic Resonance Report ---
Brain MRI WITH AND WITHOUT CONTRAST HISTORY: Difficulty speaking. Stroke symptoms. TECHNIQUE: Multiplanar multisequence MRI of the brain was performed both before and after the intrave nous administration of contrast. COMPARISON STUDY: Brain MRI 07/23/2022. FINDINGS: There are no areas of restricted diffusion to suggest acute infarction. The midline structu res are intact. A left maxillary sinus retention cyst is again noted.. The mastoid air cells are padma r. The ventricles and sulci are within normal limits for age. There is no mass, hematoma, midline julieta ft. The major vascular flow-voids at the skull base are well maintained. Postcontrast sequences show no areas of abnormal enhancement. IMPRESSION: No acute intracranial abnormality. ACT 112: Negative or not required by law. Electronically signed by: Jem Ochoa M.D. 07/27/2022 8:40 AM
[2022-07-27] MEDS: ROSUVASTATIN CALCIUM 10 MG TAB PO SCH (09:53)
[2022-07-27] MEDS: ASPIRIN 81 MG ECTAB PO SCH (09:53)
[2022-07-27] MEDS ORDERED: INSULIN ASPART PER UNIT SC ONE (10:30)
[2022-07-27 11:12] LABS: Basophils # (auto) 0.05 K/uL (0-0.2); Basophils % (auto) 0.5 %; Eosinophils % (auto) 2.1 %; Hematocrit (blood only) 42.5 % (40.1-51.0); Hemoglobin 14.4 g/dl (14.0-18.0); Immature Granulocytes # (auto) 0.04 K/uL (0.00-0.02); Immature Granulocytes % (auto) 0.4 %; Lymphocytes # (auto) 2.17 K/uL (1.2-3.4); Lymphocytes % (auto) 22.3 %; Mean Corpuscular Hemoglobin 30.4 pg (25.0-34.0); Mean Corpuscular Hgb Conc 33.9 g/dL (32.0-36.0); Mean Corpuscular Volume 89.9 fL (80.0-100.0); Mean Platelet Volume 10.5 fL (9.4-12.4); Monocytes % (auto) 6.2 %; Neutrophils # (auto) 6.65 K/uL (1.4-6.5); Neutrophils % (auto) 68.5 %; Platelet Count 187 K/uL (130-400); RDW Coefficient of Variation 12.3 % (11.5-14.5); RDW Standard Deviation 40.1 fL (36.4-46.3); Red Blood Count 4.73 M/uL (4.63-6.08); White Blood Count 9.71 K/ul (4.8-10.8)
--- NOTE | 2022-07-27 11:35 | Neurology Progress Note ---
Date of Service July 27, 2022 Assessment & Plan (1) Left-sided weakness: (2) Numbness and tingling of left arm and leg: (3) Left facial numbness: (4) Memory deficits: Plan Tthis patient had the acute onset of severe chest pain July 23 resulting in admission. He did not seem to have any neurologic issues immediately in the ER but as time went on he complained of left-sided weakness and numbness. Unfortunately, his neurologic examination is variable and I suspect giveaway weakness ( secondary to variable effort ). For as much of the weakness he supposedly had in his arm and leg that he related on July 24,he had no facial droop / facial weakness. In addition, his numbness pattern is in all 3 distributions of the left 5th cranial nerve which would not be a stroke. Only the cheek and jaw would be numbness stroke in the forehead would be spared. In addition, he feels "nothing" in the arm and leg with the pin compared to normal on the right. There are no other objective findings and I do not suspect he has any obvious focal neurologic findings. In addition he has memory issues but I found him reasonable to converse with. Overall, his mood is down and I suspect depression. At the beginning of his hospital stay, MRI of the brain showed no stroke and little to no old small vessel ischemic disease either. His head and neck vasculature was quite normal on CT angiography. He does have some neck pain. Patient had similar acute symptoms involving dysarthria and left-sided weakness and numbness as before. Again, I find his neurologic examination variable and I am not convinced there is any pathologic weakness present. CT scan of the head, CT angiography of the head neck, and MRI of the brain again were all obtained and were unremarkable / normal. There is no new stroke. He does have some risk factors for stroke including diabetes and dyslipidemia. Overall, I have no significant neurologic disorder to call this patient for his symptoms. The only other thing I could add is it could be vasospasm (complicated migraine ) although he does not have much in the way of a headache currently. Recommendations: 1. Consider initiating fluoxetine 20 mg daily for his mood. I still believe he has depression. 2. Increase activity as able, considering physical, occupational, and speech therapy 3. We could consider MRI of the cervical spine but I see no evidence of myelopathy on exam. In addition, with the facial numbness that would not be consistent with a cervical spine lesion anyway. 4. For now, continue 81 mg aspirin +70 5 milligrams clopidogrel daily. Do this for 3 weeks and then go back to 81 milligram aspirin alone. Overall, I spent a total of 60 minutes with this case including review of records, review of MRI films, direct evaluation of the patient at bedside, and discussion of the case with the patient and RN at bedside, and Dr. Bello, including differential diagnosis and treatment options. Admission and Anticipated Discharge Date Admission Date: July 24, 2022 Subjective The patient was doing very well until around 0540 this morning when he became less responsive. The nurse tried to talk to him and he would not respond until the 3rd time when he said "I do not feel well". He had blurry vision and left facial droop left-sided weakness and garbled speech. CT scan of the head showed no changes and the same as previous. A CT angiography of the head and neck was repeated it showed note difference from the previous studies of several days ago. Finally an MRI of the brain was obtained and showed no stroke he has the old small vessel ischemic disease and atrophy of a moderate nature , unchanged from the previous MRI several days ago. He had a mild headache earlier this morning but currently has no headache. Hemoglobin A1c earlier this hospitalization was 9.8. Triglycerides were 84 and cholesterol 125. An echocardiogram was unremarkable. He had cardiac catheterization that showed no significant coronary disease. He was on aspirin but Plavix was added this morning. Blood pressure was 109/69 before the episode and 125/78 later. He does not have high blood pressure. Results & Data ([facility]) Vital Signs (Past 12 Hours) Vital Signs Temp Pulse Pulse Resp BP BP Pulse Ox 07/27/22 07:33 36.7 C 59 L 16 125/78 94 07/27/22 03:13 36.5 C 64 18 109/69 99 07/26/22 23:58 58 L 07/26/22 23:35 36.8 C 63 18 114/71 98 O2 Del Method 07/27/22 07:33 Room Air 07/27/22 03:13 Room Air 07/26/22 23:58 07/26/22 23:35 Room Air Exam (Neuro) Physical Exam: He is awake and alert. Speech is hesitant and somewhat dysarthric but is variable. He does not have a receptive aphasia. Occasionally he hesitates to get a word out. At rest he does not have a facial droop. He does not move the left side quite as well as the right with voluntary smile. Forehead raises symmetrically bilaterally. Tongue is midline. Extraocular muscles are intact without nystagmus. The patient did not have a drift With outstretched arms, but he did lower his left arm at the shoulder regularly. Strength was difficult to evaluate but clearly 5/5 diffusely in the right side both proximally and distally in the arm leg. On the left side, he had give-way weakness at times and at times he was not producing a full effort but I was not convinced he had any actual , pathological weakness in the arm and leg. Patient had decreased sensation diffusely in the left face arm and leg compared to the right. Reflexes seem symmetrical. Toes were downgoing on plantar stimulation bilaterally. PG Care Time/CCT Total # of Minutes Spent Total Time Spent with Patient: Total time spent is greater than 50% in coordination of care (as documented) at patient's floor/unit and/or counseling patient: Coding Level of Care Code 50780 Subseq Hosp Care Lvl 3 Diagnoses Left-sided weakness R53.1 Numbness and tingling of left arm and leg R20.0; R20.2 Left facial numbness R20.0 Memory deficits R41.3 Time Spent (min) 60 Comment Add modifiers as able
[2022-07-27 11:48] LABS: Albumin Level 3.5 gm/dl (3.4-5.0); Bilirubin,Total 0.5 mg/dl (0.2-1.0); Calcium 9.3 mg/dl (8.5-10.1); Creatinine Clr Calc Pharmacy 141.4 ml/min; Est GFR (African American) 111.2 ml/min; Est GFR (Non-African American) 95.9 ml/min; Globulin 3.6 gm/dl (2.5-4.0); Potassium 4.1 mmol/L (3.5-5.1); Total Protein 7.1 gm/dl (6.0-8.3)
[2022-07-27] MEDS ORDERED: INSULIN ASPART PER UNIT SC SCH (12:00)
--- NOTE | 2022-07-27 13:47 | Pharmacy Report ---
Pharmacy Glycemic Short Note 2 - Date of Service July 27, 2022 - Glycemic Short BSG Results (Last 24 hours): 07/26/22 07/26/22 07/27/22 16:13 20:05 05:37 Glucose POC Glucose 165 H 153 H 139 H 07/27/22 07/27/22 07/27/22 07:27 09:47 10:52 Glucose 125 H POC Glucose 134 H 134 H 07/27/22 11:50 Glucose POC Glucose 130 H OUTPATIENT ANTIDIABETIC REGIMEN: * N/A, previously on metformin, but hasn't taken in years per H&P * HbA1c: 9.8% (07/23/22) ASSESSMENT: 07/27: * At ~0530, patient demonstrated symptoms consistent with stroke and alert was called. At the time, BSG was recorded as 139 mg/dL. * Patient was temporarily put on NPO status for swallow eval, but was ordered a diet shortly after cleared and given breakfast + lunch. * BSG's over the past day have been safe, however all have slightly above goal. Lantus was held this AM; will give a one-time lantus today at dinner. 07/26: * Epifanio received 55 units of SQ insulin yesterday with the majority of BSGs above goal * 30 units basal + 25 units bolus * BSGs: 141, 229, 246, 200 mg/dL * Fasting BSG remains elevated. Increase Lantus by 20%. * Post prandial hyperglycemia. Will tighten Novolog parameters. 07/24: * BSGs have been fairly well-controlled today. * Lantus daily dose increased slightly today for fasting BSG above goal. * Novolog parameters loosened slightly as Lantus approaches steady-state, in an attempt to avoid hypoglycemia. * Will continue to follow and adjust as indicated. 07/23 * HC is a 66 year old male who presents with chest pain and fall with loss of consciousness * BSG in ED of 288 mg/dL, 239 mg/dL upon admission to floor * Patient has T2DM, but does not take any medications as an outpatient (previously on metformin) * Will start with weight-based stress of 2 Novolog and ~0.2 unit/kg basal PLAN FOR INPATIENT GLYCEMIC CONTROL: * Basal insulin * Will give a one-time dose today; dose dependent on BSG at time of admin (timed for 1630). * BSG less than 120mg/dL: 20u * BSG between 120-160mg/dL: 25u * BSG above 160mg/dL: 30u * Bolus insulin * NovoLog per scale ACHS or Q6hrs while NPO * Goal Range: Low 110 mg/dL - High 140 mg/dL * Correction Factor: 20 mg/dL/unit * Nutritional / Prandial insulin per carb ratio of 1 unit per 6 grams CHO consumed
--- NOTE | 2022-07-27 15:06 | Hospitalist Progress Note ---
Date of Service July 27, 2022 Assessment & Plan (1) Chest pain due to CAD: (2) Left-sided weakness: (3) Altered mental status: (4) Diabetes type 2, uncontrolled: Plan 66 y/o from [place] driving through started to have chest pain and a fall this morning with LOC. Limited and unreliable PMH. Only medication is a baby aspirin. Reports having a stent placed 5 years ago along with a loop recorder but claims not seeing any primary or specialist providers. Some left upper e xtremity weakness noted. ; D-dimer elevate CTA negative. Head CT ordered. glucose 288; place on SSI. Unstable angina status postcardiac cath on 07/24 Presented with recurrent chest pain. EKG shows normal sinus rhythm with no ST or T wave changes. High sensitive troponin negative. Echo shows EF of 55 to 60% with grade 1 diastolic dysfunction. Underwent cardiac cath on 07/24 showed moderate CAD Plan: Patient is started on aspirin, rosuvastatin, losartan and metoprolol. Will need follow-up with cardiology as outpatient. Left sided weakness: Altered mental status: Stroke ruled out Presented on admission with left-sided weakness. Stroke work-up was done which was negative. On 07/27, stroke alert was called as patient had garbled speech and weakness and numbness in his left side. Repeat stroke work-up was again negative. Plan; -Appreciate neurology recommendation; started on aspirin and Plavix for 21 days; patient to be switched over to aspirin alone after 21 days. -Lipid profile assuring; on rosuvastatin -Also started on fluoxetine as per neurology recommendation. Diabetes Mellitus, Type 2: A1C 9.[address] on SSI Per pt was taking Metformin but hasn't in years Plan: -Started on insulin glargine and NovoLog. -We will start him on metformin as outpatient; also benefit from SGLT2 inhibitor; will ask him to follow-up with his primary care doctor to decide on long-term care. Disposition: PCP: None VTE Prophylaxis: Lovenox SQ Code Status: Full Code Point of Contact: pt , Erica Disposition; patient lives in [facility]. Due to the events today morning; will restart PT OT and speech evaluation on him. Will follow his recovery; if might need placement which would be difficult given he is away from his home. Initial plan was to discharge him with daughter with follow-up back in [place]. Prescription for the medications were sent to his preferred there. Admission and Anticipated Discharge Date Admission Date: July 24, 2022 Subjective At 5:40 AM, patient was reported to have garbled speech and left-sided weakness. Stroke alert was called. He was noted to have blurry vision on left side along with left facial weakness and slurring of his speech. CT scan of the head, CT angio head and neck and MRI were unremarkable. His daughter Susana ([phone]) and were updated over the phone. Review of Systems Review of Systems: All systems reviewed & are unremarkable except as noted in Subjective Physical Exam Physical Exam: Constitutional: WD/WN, vitals as above, NAD, sitting up in bed, pleasant, conversing easily Respiratory: normal respiratory effort, lungs clear to auscultation, no wheeze, rales, rhonchi. Normal insp/exp effort, no accessory muscle use Cardiovascular: RRR, no murmur, no edema Vessels: no JVD or carotid bruit Chest: normal inspection of chest Abdomen: normal bowel sounds, soft, nontender, no hepatosplenomegaly Musculoskeletal: no cyanosis or clubbing, extremities motor strength 5/5 Skin: no rashes, warm and dry normal turgor Neurologic: Right sided strength 5/5, left sided weakness present- 3/5. Speech dysarthric. Decreased sensation diffusely in left face, arm and leg. Psychiatric: A+Ox3, euthymic affect Lymphatic: no cervical or axillary lymphadenopathy : deferred Results & Data Results & Data ([facility]) Vital Signs (Past 12 Hours) Vital Signs Temp Pulse Resp BP BP Pulse Ox O2 Del Method 07/27/22 12:09 36.5 C 57 L 20 103/72 96 Room Air 07/27/22 07:33 36.7 C 59 L 16 125/78 94 Room Air 07/27/22 03:13 36.5 C 64 18 109/69 99 Room Air Laboratory Results Laboratory Results WBC 9.71 K/ul (4.8-10.8) 07/27/22 10:52 RBC 4.73 M/uL (4.63-6.08) 07/27/22 10:52 Hgb 14.4 g/dl (14.0-18.0) 07/27/22 10:52 Hct 42.5 % (40.1-51.0) 07/27/22 10:52 MCV 89.9 fL (80.0-100.0) 07/27/22 10:52 MCH 30.4 pg (25.0-34.0) 07/27/22 10:52 MCHC 33.9 g/dL (32.0-36.0) 07/27/22 10:52 RDW Std Deviation 40.1 fL (36.4-46.3) 07/27/22 10:52 RDW Coeff of [place] 12.3 % (11.5-14.5) 07/27/22 10:52 Plt Count 187 K/uL (130-400) 07/27/22 10:52 MPV 10.5 fL (9.4-12.4) 07/27/22 10:52 Immature Gran % (Auto) 0.4 % 07/27/22 10:52 Neut % (Auto) 68.5 % 07/27/22 10:52 Lymph % (Auto) 22.3 % 07/27/22 10:52 [place] % (Auto) 6.2 % 07/27/22 10:52 Eos % (Auto) 2.1 % 07/27/22 10:52 Baso % (Auto) 0.5 % 07/27/22 10:52 Neut # (Auto) 6.65 K/uL (1.4-6.5) H 07/27/22 10:52 Lymph # (Auto) 2.17 K/uL (1.2-3.4) 07/27/22 10:52 [place] # (Auto) 0.60 K/uL (0.24-0.82) 07/27/22 10:52 Eos # (Auto) 0.20 K/uL (0-0.50) 07/27/22 10:52 Baso # (Auto) 0.05 K/uL (0-0.2) 07/27/22 10:52 Immature Gran # (Auto) 0.04 K/uL (0.00-0.02) H 07/27/22 10:52 D-Dimer 530 ug/L FEU (0-500) H* 07/23/22 09:55 Sodium 135 mmol/L (136-145) L 07/27/22 10:52 Potassium 4.1 mmol/L (3.5-5.1) 07/27/22 10:52 Chloride 106 mmol/L (98-107) 07/27/22 10:52 Carbon Dioxide 25 mmol/L (21-32) 07/27/22 10:52 Anion Gap 4 (3-11) 07/27/22 10:52 BUN 10 mg/dl (6-23) 07/27/22 10:52 Creatinine 0.77 mg/dl (0.6-1.4) 07/27/22 10:52 Est Cr Clr Drug Dosing 141.4 ml/min 07/27/22 10:52 Est GFR ( Amer) 111.2 ml/min 07/27/22 10:52 Est GFR (Non-Af Amer) 95.9 ml/min 07/27/22 10:52 BUN/Creatinine Ratio 13.0 (10-20) 07/27/22 10:52 Glucose 125 mg/dl (70-99(Fasting)) H 07/27/22 10:52 POC Glucose 130 mg/dl (70-99) H 07/27/22 11:50 Estimat Average Glucose 235 mg/dl 07/23/22 16:26 Hemoglobin A1c 9.8 % (4.5-5.6) H 07/23/22 16:26 Calcium 9.3 mg/dl (8.5-10.1) 07/27/22 10:52 Phosphorus 3.4 mg/dl (2.5-4.9) 07/24/22 07:58 Magnesium 1.8 mg/dl (1.7-2.4) 07/23/22 09:55 Total Bilirubin 0.5 mg/dl (0.2-1.0) 07/27/22 10:52 Direct Bilirubin 0.1 mg/dl (0-0.2) 07/23/22 09:55 AST 29 U/L (13-39) 07/27/22 10:52 ALT 42 U/L (7-52) 07/27/22 10:52 Alkaline Phosphatase 70 U/L (34-104) 07/27/22 10:52 Troponin I High Sens 6.6 pg/ml (0-20) 07/24/22 07:58 Total Protein 7.1 gm/dl (6.0-8.3) 07/27/22 10:52 Albumin 3.5 gm/dl (3.4-5.0) 07/27/22 10:52 Globulin 3.6 gm/dl (2.5-4.0) 07/27/22 10:52 Albumin/Globulin Ratio 1.0 (0.9-2) 07/27/22 10:52 Triglycerides 84 mg/dl (0-150) 07/24/22 07:58 Cholesterol 125 mg/dl (0-200) 07/24/22 07:58 LDL Cholesterol, Calc 81 mg/dl 07/24/22 07:58 VLDL Cholesterol, Calc 17 mg/dl (0-30) 07/24/22 07:58 HDL Cholesterol 27 mg/dl 07/24/22 07:58 Cholesterol/HDL Ratio 4.6 (0-5) 07/24/22 07:58 Lipase 64 U/L (11-82) 07/23/22 09:55 Urine Color Yellow 07/23/22 21:20 Urine Appearance Clear (Clear) 07/23/22 21:20 Urine pH 5.5 (4.5-7.5) 07/23/22 21:20 Ur Specific [place] > 1.045 (1.000-1.030) H 07/23/22 21:20 Urine Protein Negative (Negative) 07/23/22 21:20 Urine Glucose (UA) 2+ (Negative) H 07/23/22 21:20 Urine Ketones Negative (Negative) 07/23/22 21:20 Urine Blood Negative (Negative) 07/23/22 21:20 Urine Nitrite Negative (Negative) 07/23/22 21:20 Urine Bilirubin Negative (Negative) 07/23/22 21:20 Urine Urobilinogen Negative (Negative) 07/23/22 21:20 Ur Leukocyte Esterase Negative (Negative) 07/23/22 21:20 Urine Opiates Screen Pos (Neg) H 07/23/22 16:20 U Codeine Confrm GC/MS NEGATIVE ng/mL (<50) 07/23/22 16:20 Ur Morphine (GC/MS) NEGATIVE ng/mL (<50) 07/23/22 16:20 Ur Hydrocodone (GC/MS) NEGATIVE ng/mL (<50) 07/23/22 16:20 Ur Norhydrocodone NEGATIVE ng/mL (<50) 07/23/22 16:20 Ur Noroxycodone NEGATIVE ng/mL (<50) 07/23/22 16:20 Urine Oxycodone (GC/MS) NEGATIVE ng/mL (<50) 07/23/22 16:20 U Oxymorphone GC/MS NEGATIVE ng/mL (<50) 07/23/22 16:20 Ur Methadone, Qual Neg (Neg) 07/23/22 16:20 Ur Hydromorphone (GC/MS) 690 ng/mL (<50) H 07/23/22 16:20 Urine Barbiturates Neg (Neg) 07/23/22 16:20 Ur Phencyclidine (PCP) Neg (Neg) 07/23/22 16:20 U Amphetamin/Meth Scrn Neg (Neg) 07/23/22 16:20 MDMA (Ecstasy) Screen Neg (Neg) 07/23/22 16:20 U Benzodiazepines Scrn Neg (Neg) 07/23/22 16:20 Ur Cocaine Metabolite Neg (Neg) 07/23/22 16:20 U Marijuana (THC) Screen Neg (Neg) 07/23/22 16:20 Drug Screen Comment SEE NOTE 07/23/22 16:20 Ethyl Alcohol mg/dL < 10.0 mg/dl (<10.0) 07/23/22 17:06 Lead 1.2 mcg/dL (<3.5) 07/24/22 10:52 SARS-CoV-2, RNA, NAAT NEGATIVE (NEGATIVE) 07/23/22 10:30 Impressions Chest X-Ray 07/23/22 10:07 SINGLE VIEW CHEST CLINICAL HISTORY: Atypical chest pain FINDINGS: 2 AP, portable, upright chest radiographs are obtained. No prior studies are available for comparison at the time of dictation. An electronic device projects over the left chest. The heart is mildly enlarged noting atherosclerotic calcification of the thoracic aorta. The pulmonary vasculature is noncongested. There is mild bibasilar atelectasis. The lungs and pleural spaces are otherwise clear. No pneumothorax is seen. The bony thorax is grossly intact. IMPRESSION: Cardiomegaly with no acute cardiopulmonary abnormality. ACT 112: Negative or not required by law. Electronically signed by: Jordon Tao M.D. 07/23/2022 10:42 AM Chest CTA 07/23/22 11:31 CT angio chest PE protocol CLINICAL HISTORY: Chest pain, elevated dimer TECHNIQUE: Multidetector row helical CT of the chest was performed with angiographic protocol. Coronal and sagittal reformations were obtained. Coronal and sagittal MIPS were obtained from the axial data set and were submitted for review. Automated dose lowering techniques and/or adjustment according to patient size were utilized for this exam. CT DOSE: 576.96 mGycm Comparison: Comparison is made to chest radiograph 07/23/2022 FINDINGS: Lungs and pleura: Mild dependent atelectasis is seen. Heart and pericardium: Heart size is normal. No pericardial effusion. Vessels: No evidence of pulmonary embolism. Mediastinum and gladys: Unremarkable. Chest wall and lower neck: Subcentimeter thyroid nodules are noted which do not require follow-up by ACR criteria. Abdomen: A hiatal hernia is seen. Bones: Degenerative changes in the thoracic spine. IMPRESSION: No evidence of pulmonary embolism. ACT 112: Negative or not required by law. Electronically signed by: Kolby Sparks M.D. 07/23/2022 1:[address] 07/27/22 05:[address] DOSE: HISTORY: Left-sided weakness. Slurred speech. TECHNIQUE: Multiaxial CT images of the head were performed without the use of intravenous contrast. Automated exposure control was utilized for this study. A dose lowering technique was utilized adhering to the principles of ALARA. Comparison: None. Findings: The paranasal sinuses and mastoid air cells are clear. The calvarium and skull base are intact. The ventricles and sulci are within normal limits. There is no mass, hematoma, midline shift, or acute infarct. Impression: No acute intracranial abnormality. ACT 112: Negative or not required by law. Electronically signed by: Jem Ochoa M.D. 07/27/2022 7:15 AM Head CTA 07/27/22 05:53 HEAD & NECK CTA HISTORY: Left-sided weakness. TECHNIQUE: Multiaxial CT images of the head were performed following the intravenous administration of contrast to evaluate the major cerebral vessels. Multiaxial CT images of the neck were also performed following the intravenous administration of contrast to evaluate the major cervical vessels. Maximum intensity projection images were also obtained. A dose lowering technique was utilized adhering to the principles of ALARA. COMPARISON: Head and neck CTA 07/23/2022. FINDINGS: There is no mass, hematoma, midline shift, or acute infarct. Visualized intracranial internal carotid arteries, distal vertebral arteries, and basilar artery are widely patent. There is no significant stenosis, occlusion, or aneurysm seen within the bilateral ACAs, MCAs, or screw machine hand. The major dural venous sinuses are patent. The aortic arch and proximal great vessels are widely patent. There is no significant stenosis, occlusion, or dissection identified within the bilateral common carotid, internal carotid, or vertebral arteries. IMPRESSION: 1. No significant stenosis, occlusion, or aneurysm within the [place]. 2. No significant stenosis, occlusion, or dissection identified within the carotid or vertebral arteries. ACT 112: Negative or not required by law. Electronically signed by: Jem Ochoa M.D. 07/27/2022 7:18 AM Neck CTA 07/27/22 05:53 HEAD & NECK CTA HISTORY: Left-sided weakness. TECHNIQUE: Multiaxial CT images of the head were performed following the intravenous administration of contrast to evaluate the major cerebral vessels. Multiaxial CT images of the neck were also performed following the intravenous administration of contrast to evaluate the major cervical vessels. Maximum intensity projection images were also obtained. A dose lowering technique was utilized adhering to the principles of ALARA. COMPARISON: Head and neck CTA 07/23/2022. FINDINGS: There is no mass, hematoma, midline shift, or acute infarct. Visualized intracranial internal carotid arteries, distal vertebral arteries, and basilar artery are widely patent. There is no significant stenosis, occlusion, or aneurysm seen within the bilateral ACAs, MCAs, or screw machine hand. The major dural venous sinuses are patent. The aortic arch and proximal great vessels are widely patent. There is no significant stenosis, occlusion, or dissection identified within the bilateral common carotid, internal carotid, or vertebral arteries. IMPRESSION: 1. No significant stenosis, occlusion, or aneurysm within the [place]. 2. No significant stenosis, occlusion, or dissection identified within the carotid or vertebral arteries. ACT 112: Negative or not required by law. Electronically signed by: Jem Ochoa M.D. 07/27/2022 7:18 AM Brain MRI 07/27/22 06:56 Brain MRI WITH AND WITHOUT CONTRAST HISTORY: Difficulty speaking. Stroke symptoms. TECHNIQUE: Multiplanar multisequence MRI of the brain was performed both before and after the intravenous administration of contrast. COMPARISON STUDY: Brain MRI 07/23/2022. FINDINGS: There are no areas of restricted diffusion to suggest acute infarction. The midline structures are intact. A left maxillary sinus retention cyst is again noted.. The mastoid air cells are clear. The ventricles and sulci are within normal limits for age. There is no mass, hematoma, midline shift. The major vascular flow-voids at the skull base are well maintained. Postcontrast sequences show no areas of abnormal enhancement. IMPRESSION: No acute intracranial abnormality. ACT 112: Negative or not required by law. Electronically signed by: Jem Ochoa M.D. 07/27/2022 8:40 AM
[2022-07-27] MEDS ORDERED: LANTUS PER UNIT CHARGE SQ ONE (16:30)
[2022-07-28] MEDS: SODIUM CHLORIDE 0.9% 1000ML 1,000 ML IV SCH ×2 (02:27→10:07)
[2022-07-28 06:03] LABS: Basophils # (auto) 0.06 K/uL (0-0.2); Basophils % (auto) 0.6 %; Eosinophils # (auto) 0.24 K/uL (0-0.50); Eosinophils % (auto) 2.5 %; Hematocrit (blood only) 40.4 % (40.1-51.0); Hemoglobin 13.6 g/dl (14.0-18.0); Immature Granulocytes # (auto) 0.06 K/uL (0.00-0.02); Immature Granulocytes % (auto) 0.6 %; Lymphocytes # (auto) 2.28 K/uL (1.2-3.4); Lymphocytes % (auto) 23.6 %; Mean Corpuscular Hemoglobin 30.5 pg (25.0-34.0); Mean Corpuscular Hgb Conc 33.7 g/dL (32.0-36.0); Mean Corpuscular Volume 90.6 fL (80.0-100.0); Mean Platelet Volume 10.7 fL (9.4-12.4); Monocytes % (auto) 6.2 %; Neutrophils # (auto) 6.43 K/uL (1.4-6.5); Neutrophils % (auto) 66.5 %; Platelet Count 182 K/uL (130-400); RDW Coefficient of Variation 12.3 % (11.5-14.5); RDW Standard Deviation 40.2 fL (36.4-46.3); Red Blood Count 4.46 M/uL (4.63-6.08); White Blood Count 9.67 K/ul (4.8-10.8)
[2022-07-28 06:35] LABS: BUN Creatinine Ratio 10.1 (10-20); Calcium 8.6 mg/dl (8.5-10.1); Chol HDL Ratio 4.1 (0-5); Creatinine Clr Calc Pharmacy 121.6 ml/min; Est GFR (African American) 104.7 ml/min; Est GFR (Non-African American) 90.4 ml/min; Potassium 4.3 mmol/L (3.5-5.1)
[2022-07-28 07:54] LABS: Estimated Average Glucose 229 mg/dl; Hemoglobin A1C 9.6 % (4.5-5.6)
[2022-07-28 08:10] VITALS: PULSE 61
[2022-07-28] MEDS: ROSUVASTATIN CALCIUM 10 MG TAB PO SCH (08:25)
[2022-07-28] MEDS: ASPIRIN 81 MG ECTAB PO SCH (08:25)
[2022-07-28] MEDS: LOSARTAN POTASSIUM 25 MG TAB PO SCH (08:25)
[2022-07-28] MEDS: METOPROLOL SUCC 25MG EXT REL TAB PO SCH (08:25)
[2022-07-28] MEDS: INSULIN ASPART PER UNIT SC SCH ×2 (08:32→12:40)
--- NOTE | 2022-07-28 08:41 | Magnetic Resonance Report ---
MRI OF THE CERVICAL SPINE COMBO CLINICAL HISTORY: Facial numbness. Left-sided weakness. COMPARISON STUDY: CT angiogram of the neck dated 07/27/2022. TECHNIQUE: MRI of the cervical spine is performed utilizing various T1 and T2 weighted sequences in t he axial and sagittal planes. Contrast-enhanced sequences are acquired following the IV administratio n of 13 cc of Gadavist. The examination is modestly degraded by motion artifact. FINDINGS: Cervical spine: Vertebral body height and alignment are maintained throughout the cervical spine. Mar row signal intensity appears diffusely diminished, likely representing bony sclerosis seen on the CT scan. There is straightening of the cervical lordosis. Anterior osteophytes are seen throughout. The atlantodental articulation is maintained noting productive degenerative change. The spinous processes appear intact. A tiny hemangioma is noted in the body of C6. No destructive bone lesion is seen Intervertebral discs: Degenerative desiccation and loss of height is seen throughout the cervical spi ne. Loss of height is moderate from C4-C5 through C6-C7. Spinal cord: The visualized spinal cord is normal in morphology and signal intensity. No abnormal pos tcontrast enhancement is identified. C2-C3: Unremarkable. C3-C4: A posterior disc osteophyte complex minimally effaces the ventral subarachnoid space. Facet ar thropathy is of no consequence. The neural foramen are patent. C4-C5: A posterior disc osteophyte complex eccentric towards the right abuts the ventral cord. In con junction with facet arthropathy there is mild right neural foraminal stenosis. Left neural foramen is clear. C5-C6: A posterior disc osteophyte complex eccentric to the left minimally effaces the ventral cord. Uncovertebral and facet arthropathy contribute to moderate to severe left greater than right neural f oraminal stenosis. C6-C7: A posterior disc osteophyte complex abuts the ventral cord. Lateral disc bulge is seen bilater ally, left greater than right. In conjunction with facet arthropathy there is severe left greater arti n right neural foraminal stenosis. This may impinge on the exiting bilateral C7 nerve roots. C7-T1: Unremarkable. T1-T2: Unremarkable. Soft tissues: The prevertebral and paraspinous soft tissues are normal as visualized. Brain parenchyma: The visualized brain parenchyma at the skull base is normal in appearance. IMPRESSION: 1. Multilevel cervical spondylosis as above, greatest at C5-C6 and C6-C7. See discussion for detailed level by level analysis. 2. The cervical cord is normal in morphology and signal intensity with no abnormal postcontrast enhan cement identified. 3. Additional findings as above. Dictated: 07/28/2022 8:05 AM Transcribed: 07/28/2022 8:35 AM Jessica [id number] KELTON_Jeana Electronically signed by: Jordon Tao M.D. 07/28/2022 8:40 AM
[2022-07-28] MEDS ORDERED: CLOPIDOGREL BISULFATE 75 MG TAB PO SCH ×2 (09:00)
[2022-07-28] MEDS ORDERED: FLUoxetine HCL 20 MG CAP PO SCH (09:00)
[2022-07-28] MEDS ORDERED: TOPIRAMATE 25 MG TAB PO SCH ×2 (10:00→11:30)
--- NOTE | 2022-07-28 11:24 | Neurology Progress Note ---
Date of Service July 28, 2022 Assessment & Plan (1) Left-sided weakness: Plan: Recurrent left-sided weakness, strokelike symptoms with unremarkable neuro imaging x2 including MRI of the brain and CT angiography of the head and neck, and MRI of the cervical spine. At this point, would need to consider stroke mimics. Patient does endorse a history of what sounds like migraine headache. He could be having complicated migraine. Postictal weakness/Norris's paralysis also possible although no obvious clinical seizure activity has been observed in this patient in the context of this hospitalization. To the extent that patient's left-sided weakness is related to complicated migraine, or Norris's paralysis, I would expect gradual improvement over several days. I have ordered an EEG. I would also recommend starting treatment with topiramate which is effective for both complicated migraine and seizures. (A diagnosis of seizure disorder has not been proven in this patient, however). Would start with topiramate 25 mg p.o. twice daily, plan to uptitrate to 50 mg twice daily after 1 week. Further dosage adjustment would need to be made on an ongoing basis, depending on patient's clinical status. Admission and Anticipated Discharge Date Admission Date: July 24, 2022 Subjective Follow-up for left-sided weakness Patient continues to report mild left-sided weakness, arm and leg. Endorses a history of recurrent migrainous headache with associated nausea and light and sound sensitivity. No known history of seizure disorder. 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 Patient has had brain MRI and CT angiography of the head neck completed on 2 separate occasions during this hospitalization for further assessment of left-sided weakness. The studies have been unremarkable. No evidence of acute or subacute stroke, no evidence of vascular lesion. A cervical spine MRI revealed some spondylitic changes, mostly at C5-6 and C6-7. No evidence of myelopathy. There is associated moderate to severe left greater than right neuroforaminal stenosis at C5-6 and severe left greater than right neuroforaminal stenosis at C6-7. He does not complain of significant neck or arm pain at this time but continues to endorse difficulty lifting the left arm up out of the bed. Review of Systems Constitutional: no fever and no chills Eyes: no blind spots and no diplopia Neurologic: + localized weakness and + headache(s) Results & Data ([facility]) Vital Signs (Past 12 Hours) Vital Signs Temp Pulse Pulse Resp BP Pulse Ox O2 Del Method 07/28/22 07:59 36.5 C 60 20 124/74 95 Room Air 07/28/22 07:20 61 07/28/22 05:06 36.8 C 62 18 112/72 95 Laboratory Results WBC 9.67, hemoglobin 13.6, hematocrit 40.4, MCV 90.6, platelet count 182, sodium 137, potassium 4.3, BUN 9, creatinine 0.89, hemoglobin A1c 9.6, calcium 8.6, AST 29, ALT 42, triglycerides 62, cholesterol 94, LDL 59, VLDL 12, HDL 23 Diagnostic Findings Results of imaging is as described above, I independently reviewed the images corresponding to patient's recently completed MRI of the brain x2 and cervical spine MRI. Electrocardiogram revealed a normal sinus rhythm, 60 bpm. An echocardiogram completed July 23, 2022 revealed moderate concentric LVH, normal left ventricular systolic function, no segmental left ventricular wall motion abnormalities, mild aortic valve sclerosis. Exam (Neuro) Neurologic: Oriented to:: Person, Place and Time Memory: Short Term Intact and Remote Intact Attention: Span Intact and Concentration Intact Speech Fluency: negative Dysarthria or Dysfluency Fund of Knowledge: Current Events, Past History and Vocabulary Cranial Nerves: Normal II, III, IV, , V, VII, VIII, IX, X, XI and XII Motor Strength: Hemiparesis (mild, poor movement initiation for the left arm and leg, fixed with arm roll on the left noted, decreased facility of fine finger movement for the left hand) Laterality: Left Muscle Bulk/Involuntary Movements: No Involuntary Movements; negative Muscle Atrophy Sensation: Light Touch Intact and Pain/Temperature Intact Coordi nation: Finger-Nose Abnormal Laterality: Left and Heel-Garcia Abnormal Laterality: Left Deep Tendon Reflexes: Rt Biceps: 2+, Lt Biceps: 2+, Rt Patellar: 2+ and Lt Patellar: 2+ Coding Level of Care Code 65051 Subseq Hosp Care Lvl 2 Diagnoses Left-sided weakness R53.1
[2022-07-28 11:48] VITALS: TEMP 97.5; O2SAT 97
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
[2022-07-28 14:00] VITALS: BP 125/78
[2022-07-28] MEDS ORDERED: metFORMIN HCL 500 MG TAB PO SCH ×2 (15:00→17:00)
[2022-07-28] MEDS ORDERED: LANTUS PER UNIT CHARGE SQ SCH (21:00)
[2022-07-29] MEDS ORDERED: CLOPIDOGREL BISULFATE 75 MG TAB PO SCH (08:00)
[2022-07-29] MEDS ORDERED: METOPROLOL SUCC 25MG EXT REL TAB PO SCH (09:00)
[2022-07-29] MEDS ORDERED: LOSARTAN POTASSIUM 25 MG TAB PO SCH (09:00)
[2022-07-29] MEDS ORDERED: ASPIRIN 81 MG ECTAB PO SCH (09:00)
[2022-07-29] MEDS ORDERED: TOPIRAMATE 25 MG TAB PO SCH (09:00)
== END 2022-07-28 14:53 | disposition home or self-care (01) | DRG 287 ==
LOC: 2N 09:33 → ED 09:33 → 2N 17:51 → SUATTDRO 07-24 13:23 → 4W 07-24 15:59